=== PATIENT | male | born 1970 | race Caucasian/White ===

== ENCOUNTER 2019-06-07 10:04 | Outpatient (CLI) | payer OTHER, SELFPAY ==
--- NOTE | ~2019-06-07 | XR_ITS ---
XR thoracic spine 3V 06/07/2019 10:26 Indication: Back pain Procedure: 3 views thoracic spine Comparison: No prior studies for comparison. Findings: No acute fracture or traumatic malalignment. No paraspinal soft tissue abnormality. No radi opaque foreign bodies. Surrounding osseous structures within normal limits. Pedicles intact. Impression: 1: No significant abnormality of the thoracic spine. Reviewed, dictated and finalized at location A. Impression: 1: No significant abnormality of the thoracic spine.
[2019-06-07 10:48] LABS: Alanine Aminotransferase 53 U/L (4-50); Albumin Level 4.3 g/dL (3.5-5.1); Alkaline Phosphatase 117 U/L (38-126); Aspartate Amino Transferase 33 U/L (17-59); Bilirubin,Total 0.8 mg/dL (0.2-1.3); Blood Urea Nitrogen 19 mg/dL (9-20); Calcium 10.7 mg/dL (8.4-10.2); Carbon Dioxide 29 mmol/L (22-30); Chloride 104 mmol/L (98-107); Cholesterol 154 mg/dL (0-200); Estimated Glomerular Filt Rate > 60; Glucose 111 mg/dL (75-110); HDL Direct 22 mg/dL; Potassium 4.3 mmol/L (3.4-5.0); Sodium 138 mmol/L (137-145); Triglycerides 195 mg/dL (<150)
[2019-06-07 10:59] LABS: LDL Cholesterol Direct 99 mg/dL
[2019-06-07 11:18] LABS: Thyroid Stimulating Hormone 0.977 uIU/mL (0.465-4.680)
== END 2019-06-07 10:05 | disposition home or self-care (01) ==
PROVIDERS: Visit Provider Nurse Practitioner
DX: E78.2 Mixed hyperlipidemia (principal); F32.9 Major depressive disorder, single episode, unspecified; M54.9 Dorsalgia, unspecified
CPT/HCPCS: 36415; 72072; 80053; 80061; 84443

== ENCOUNTER 2019-12-27 11:11 | Emergency (ER) | payer OTHER, SELFPAY ==
[2019-12-27 11:22] VITALS: BP 140/98; PULSE 82; RESP 16; TEMP 36.8; O2SAT 99
--- NOTE | 2019-12-27 11:22 | ED.URI ---
HPI - URI/Sore Throat General Chief Complaint: Upper Respiratory Infection Stated Complaint: sore throat Time Seen by Provider: 12/27/19 11:34 Source: patient and RN notes reviewed Mode of arrival: ambulatory Limitations: no limitations History of Present Illness HPI Narrative: 49-year-old male presents concern for sore throat for approximately 1 week. Reports he had Covid in September, the symptoms fully resolved. He reports sore throat has been worsening. He denies rhinorrhea, nasal congestion, cough, shortness of breath, headache, nausea, fever. MD elicited complaint: sore throat Related Data Home Medications Medication Instructions Recorded Confirmed atorvastatin 20 mg PO DAILY 12/27/19 12/27/19 citalopram 40 mg PO DAILY 12/27/19 12/27/19 diclofenac sodium 75 mg PO DAILY 12/27/19 12/27/19 pantoprazole 40 mg PO DAILY 12/27/19 12/27/19 Allergies Allergy/AdvReac Type Severity Reaction Status Date / Time No Known Allergies Allergy Verified 10/31/19 13:37 Review of Systems Review of Systems: Narrative: CONSTITUTIONAL: Denies malaise, chills, sweats, or fever. EYES: Denies visual changes, redness, or discharge. ENT: Denies rhinorrhea, congestion, sinus pain, otalgia. Reports sore throat. CARDIOVASCULAR: Denies chest pain, palpitations, or edema. RESPIRATORY: Denies cough or dyspnea. GASTROINTESTINAL: Denies abdominal pain, nausea, vomiting, diarrhea SKIN: Denies rash or itching. MUSCULOSKELETAL: Denies myalgia. NEUROLOGIC: Denies headache. All systems reviewed & are unremarkable except as noted in HPI and below PMFSH Past Medical History Medical History (Updated 12/27/19 @ 11:42 by Jessenia Ruiz NP) Screening for colon cancer Social History Social History Smoking status: Never smoker Alcohol intake: never Comments At time of signature, agree with nursing past medical, surgical, social and family history. There is no relevant family history pertinent to the presenting complaint Exam Narrative: Exam Narrative: GENERAL: Well-appearing, well-nourished, and in no acute distress. HEAD: Normocephalic EYES: PERRLA, conjunctivae clear ENT: Nares clear, turbinates pink, no discharge. Mucous membranes moist. TM pearly brennan with sharp light reflex bilaterally; no tragal tenderness. Oropharynx erythematous without lesions. Tonsils enlarged and without exudate, no drooling, no hoarseness, no trismus, uvula midline. NECK: Supple. No lymphadenopathy CHEST: Clear to auscultation, breath sounds equal. No wheezing, rhonchi, rales, or stridor. No respiratory distress, speaks in full sentences. HEART: Regular rate and rhythm. No murmur heard. SKIN: Warm, dry, no rash. NEURO: Alert and oriented x3. PSYCH: Normal mood and affect Course Course Emergency Course: Patient is aware of diagnosis, understands and agrees to treatment plan. Anticipatory guidance given. Patient agrees to follow-up as directed and is aware of reasons to seek care at the emergency department. Portions of this record may have been created with voice recognition software Vital Signs Vital signs: Vital Signs Temperature 98.3 F 12/27/19 11:22 Pulse Rate 82 12/27/19 11:22 Respiratory Rate 16 12/27/19 11:22 Blood Pressure 140/98 H 12/27/19 11:22 Pulse Oximetry 99 12/27/19 11:22 Temperature 98.3 F 12/27/19 11:22 Pulse Rate 82 12/27/19 11:22 Respiratory Rate 16 12/27/19 11:22 Blood Pressure 140/98 H 12/27/19 11:22 Pulse Oximetry 99 12/27/19 11:22 Reviewed. MDM - URI/Sore Throat MDM Narrative Medical decision making narrative: Differential diagnosis considered: Baig virus, strep pharyngitis, allergic rhinitis, upper respiratory tract infection, sinusitis, rhinosinusitis, nasopharyngitis. viral pharyngitis, otitis media, otitis externa, pneumonia, bronchitis, viral cough syndrome, viral syndrome, and influenza. Exam findings show no acute concerns or changes; yasmany
== END 2019-12-27 11:44 | disposition home or self-care (01) ==
PROVIDERS: Emergency Provider Nurse Practitioner; PCP Internal Medicine
DX: J02.0 Streptococcal pharyngitis (principal); Z86.19 Personal history of other infectious and parasitic diseases; I10 Essential (primary) hypertension; J45.909 Unspecified asthma, uncomplicated; K21.9 Gastro-esophageal reflux disease without esophagitis; F41.9 Anxiety disorder, unspecified; F32.9 Major depressive disorder, single episode, unspecified
CPT/HCPCS: 87880; 99213; G0463

== ENCOUNTER 2020-02-21 11:48 | Emergency (ER) | payer BC, SELFPAY ==
[2020-02-21 12:10] VITALS: BP 161/99; PULSE 79; RESP 16; TEMP 36.4; O2SAT 99
--- NOTE | 2020-02-21 12:10 | ED.GENADULT ---
HPI - General Adult General Chief complaint: Extremity Injury, Upper Stated complaint: right arm pain Time Seen by Provider: 02/21/20 12:10 Source: patient and RN notes reviewed Mode of arrival: ambulatory Limitations: no limitations History of Present Illness HPI narrative: 50 yo male presents to the [facility] with C/O right upper arm pain since Sunday, 5 days. States that he had a tDap shot on Sat. Had increased stress due to brothers Sunday. Woke up Sunday with pain in the deltoid. Bruising noted to the site of vaccine. Pain is intermittent. Cannot reduce pain improvement. Cannot reduce pain with palpation of the C-spine, trapezius, or deltoid. Denies chest pain or shortness of breath. Has seen a chiropractor and was told he had a pinched nerve in his C-spine. Related Data Home Medications Medication Instructions Recorded Confirmed atorvastatin 20 mg PO DAILY 12/27/19 02/21/20 citalopram 40 mg PO DAILY 12/27/19 02/21/20 diclofenac sodium 75 mg PO DAILY 12/27/19 02/21/20 pantoprazole 40 mg PO DAILY 12/27/19 02/21/20 Allergies Allergy/AdvReac Type Severity Reaction Status Date / Time No Known Allergies Allergy Verified 02/21/20 12:15 Review of Systems Review of Systems: Narrative: CONSTITUTIONAL: Denies fever, chills, or sweats. EYES: Denies visual changes, redness, or discharge. ENT: Denies rhinorrhea, congestion, sore throat, or otalgia. CARDIOVASCULAR: Denies chest pain, palpitations, or edema. RESPIRATORY: Denies cough or dyspnea. GASTROINTESTINAL: Denies abdominal pain, nausea, vomiting, or diarrhea. GENITOURINARY: Denies dysuria or hematuria. SKIN: Denies rash or itching. MUSCULOSKELETAL:Right arm pain, deltoid muscle and triceps muscle. NEUROLOGIC: Denies headache, numbness, or weakness. PSYCHIATRIC: Denies anxiety or depression. All other systems reviewed are negative, except as documented in HPI. [facility] Past Medical History Medical History (Updated 02/21/20 @ 12:26 by Jessenia Duran) Screening for colon cancer Social History Social History Smoking status: Never smoker Alcohol intake: never Comments At the time of my signature, I reviewed and agree with the nursing past medical, surgical, social, and family history. There is no relevant family history pertinent to the patient complaint. Exam Narrative: Exam Narrative: GENERAL: This is a well-nourished, well-developed patient, in no apparent distress. HEAD: normocephalic, atraumatic. EYES: PERRL. Sclera clear/white. Vision is grossly intact. EARS: External ears normal, NECK: Neck supple, non-tender without lymphadenopathy, masses or thyromegaly. No midline tenderness. CARDIOVASCULAR: Regular rate and rhythm without murmurs, gallops, or rubs. RESPIRATORY: Clear to auscultation. Breath sounds equal bilaterally. No wheezes, rales, or rhonchi. GASTROINTESTINAL: Abdomen soft, non-tender, nondistended. Bowel sounds are active. No hepato-splenomegaly, or palpable masses. No guarding. SKIN: warm, intact with no suspicious lesions or rash, good texture and turgor. NEURO: awake, alert, and oriented to person, place and time. There were no obvious focal neurologic abnormalities. EXTREMITIES: No clubbing, cyanosis, or edema. No calf tenderness. Negative Homans sign bilaterally. BACK: Nontender without deformity or crepitance. No flank tenderness. Const: General: no acute distress Orientation/consciousness: patient oriented x3 Extrem: Left upper extremity: full ROM and normal capillary refill; no cyanosis Shoulder/upper arm images: 1. Bruise, patient states that is where he received his Tdap. Swelling noted compared to left side. 2. reports intermittent pain, unable to reproduce on exam. Course Vital Signs Vital signs: Vital Signs Temperature 97.6 F 02/21/20 12:10 Pulse Rate 79 02/21/20 12:10 Respiratory Rate 16 02/21/20 12:10 Blood Pressure 161/99 H
[2020-02-21 12:15] VITALS: BP 161/99; PULSE 79; RESP 16; TEMP 36.4; O2SAT 99
[2020-02-21 12:30] VITALS: BP 140/90
== END 2020-02-21 12:30 | disposition home or self-care (01) ==
PROVIDERS: Emergency Provider Nurse Practitioner; PCP Internal Medicine
DX: S40.021A Contusion of right upper arm, initial encounter (principal); X58.XXXA Exposure to other specified factors, initial encounter; S46.911A Strain of unspecified muscle, fascia and tendon at shoulder and upper arm level, right arm, initial encounter; I10 Essential (primary) hypertension; J45.909 Unspecified asthma, uncomplicated; K21.9 Gastro-esophageal reflux disease without esophagitis; F41.9 Anxiety disorder, unspecified; F32.9 Major depressive disorder, single episode, unspecified
CPT/HCPCS: 99213; G0463

== ENCOUNTER → 2020-02-25 11:37 | Outpatient (CLI) | payer BC, SELFPAY ==
--- NOTE | ~2020-02-25 | XR_ITS ---
EXAMINATION: XR_[id number]_CR DATE: 02/25/2020 11:54 INDICATION: Neck pain. TECHNIQUE: 4 views of cervical spine were obtained. COMPARISON: None. FINDINGS: There is kyphosis of cervical spine. Vertebral body heights are normal. There is mildly dec reased disc height at C4-C5 and moderately decreased disc height at C5-C6 and C6-C7. There is multile melvin mild facet joint osteoarthritis. There is multilevel uncovertebral joint osteoarthritis, severe o n the right at C5-C6 and bilaterally at C6-C7. There is mild central canal stenosis at C4-C5, C5-C6, and C6-C7. No prevertebral soft tissue swelling. IMPRESSION: 1. Moderate cervical spondylosis. Reviewed, dictated and finalized at location B. AL RESIDENT
== END ==
PROVIDERS: PCP Internal Medicine; Visit Provider Chiropractor
DX: M54.2 Cervicalgia (principal); M47.812 Spondylosis without myelopathy or radiculopathy, cervical region
CPT/HCPCS: 72040

== ENCOUNTER 2020-05-16 10:32 | Outpatient (CLI) | payer BC, SELFPAY ==
--- NOTE | ~2020-05-16 | MR_ITS ---
EXAMINATION: MR cervical spine wo con EXAM DATE: 05/16/2020 11:22 INDICATION: Radiculopathy, right arm pain and tingling. Neck pain. TECHNIQUE: Multi-sequential, multiplanar MR images of the cervical spine were obtained without contra st. Axial T2, axial T2 MERGE sequence. Sagittal T1, T2, T2 fat saturation images also obtained. Th ere is no prior study for comparison. FINDINGS: There is moderate disc disease C5-6 and 6-7, mild at C4-5. The vertebral bodies are aligne d in the AP dimension. There are no suspicious marrow signal abnormalities. The spinal cord signal in tensity and intrinsic morphology is normal. Cervicomedullary junction is normal in appearance. Level by level evaluation: C2-C3: Disc does not extend beyond the endplate margin. Uncovertebral joint arthropathy: None. Facet joint arthropathy: Mild bilateral. Neural foraminal stenosis: No stenosis. Central canal stenosis: No stenosis. C3-C4: There is a minimal diffuse disc bulge. Uncovertebral joint arthropathy: Mild to moderate right, mild left. Facet joint arthropathy: Mild to moderate bilateral. Neural foraminal stenosis: Mild to moderate right, mild left. Central canal stenosis: No stenosis. C4-C5: There is a minimal diffuse disc bulge. Uncovertebral joint arthropathy: Mild to moderate right, mild left. Facet joint arthropathy: Mild to moderate right, mild left. Neural foraminal stenosis: Minimal bilateral. Central canal stenosis: No stenosis. C5-C6: There is a mild to moderate diffuse disc bulge asymmetric to the right extending into the neur al foramina Uncovertebral joint arthropathy: Moderate right, mild left. Facet joint arthropathy: Mild to moderate bilateral. Neural foraminal stenosis: Severe right, mild left. Central canal stenosis: Mild. C6-C7: There is a mild diffuse disc bulge. Uncovertebral joint arthropathy: Moderate right, mild to moderate left. Facet joint arthropathy: Mild bilateral . Neural foraminal stenosis: Moderate to severe right, moderate left. Central canal stenosis: No stenosis. C7-T1: Disc does not extend beyond the endplate margin. Uncovertebral joint arthropathy: Mild bilateral. Facet joint arthropathy: Mild bilateral. Neural foraminal stenosis: No stenosis. Central canal stenosis: No stenosis. IMPRESSION: 1. Significant right neural foraminal stenosis C5-6 and C6-7. 2. Lesser spondylosis above. Reviewed, dictated and finalized at location A.
== END 2020-05-16 10:33 | disposition home or self-care (01) ==
PROVIDERS: PCP Internal Medicine; Visit Provider Internal Medicine
DX: M54.12 Radiculopathy, cervical region (principal)
CPT/HCPCS: 72141

== ENCOUNTER 2020-08-11 17:15 | Outpatient (RCR) | payer BC, SELFPAY ==
--- NOTE | 2020-07-07 15:15 | PTOPEVAL ---
PHYSICAL THERAPY EVALUATION AND PLAN OF CARE Thank you for referring Fer Euceda to [facility].? The patient is scheduled to be seen for therapy? 1x/week for 4 weeks. Please review, sign, date and return this plan of care JUAN CARLOS. I agree with and certify that the following plan of care is medically necessary. Referring Physician Date Attending Provider: Krzysztof Liu Evaluation Outpatient Past Medical History Neurological History Hx Migraine Yes: occassional Hx Other Neurological Disorders Yes: chronic headaches, may be sinus related, unsure Cardiovascular History Hx Hypertension Yes Respiratory History Hx Asthma Yes Gastrointestinal History Hx Gastroesophageal Reflux Disease Yes Hx Hemorrhoids Yes Hx Other Gastrointestinal Disorders Yes: lap bella Endocrine History Hx Thyroidectomy Yes: partial parathyroidectomy Psychosocial History Hx Anxiety Yes Hx Depression Yes Diagnosis cervical pain with radiculopathy Onset chronic Subjective Information States that he was Query Text:As Reported By Patient/ experiencing some Family intermittment neck pain initially, but then in February he experienced some stress which seemed to increase the pain and it started to go down the right arm. He was experiencing some tinglin gin the irght arm. He saw a chiropractor which seemed to help some. He slowed that down and it pain started to come back. He has had an x-ray and MRI indicating spinal stenosis and herniated discs. 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 The doctors had talked about doing surgery, but have decided that since his pain is reduced and strength is good, they are going to hold off on surgery and do therapy. Self Report Pain Assessment Right Spine, Cervical Reported Pain Level 2 Pain Description Aching,Tightness,Tingling Pain Radiation Right Arm Pain Frequency Chronic,Continuous Lowest Pain I
--- NOTE | 2020-07-21 14:26 | PCPTNOTE ---
Patient called & cancelled scheduled appointment this date due to being stuck in traffic.
--- NOTE | 2020-08-11 17:52 | PTOPEVAL ---
PHYSICAL THERAPY DISCHARGE NOTE Thank you for referring Fer Euceda to [facility].? Please review, sign, date and return this plan of care JUAN CARLOS. I agree with and certify that the following plan of care is medically necessary. Referring Physician Date Attending Provider: Krzysztof Liu Discharge Diagnosis cervical pain with radiculopathy Onset chronic Subjective Information States that neck pain Query Text:As Reported By Patient/ continues to be at bay but the Family arm tingling is almost worse than when he started. States that he stirred it up. Cervical and Lumbar ROM Cervical ROM Cervical Flexion (0-60) 50 Query Text:Active in Degrees Cervical Extension (0-70) 45 Query Text:Active in Degrees Cervical Rotation Right (0-90) 80 Query Text:Active in Degrees Cervical Rotation Left (0-90) 80 Query Text:Active in Degrees Upper Extremity Muscle Strength Testing Scapular/Shoulder Left Shoulder Flexion Strength 5 Normal Shoulder Extension Strength 5 Normal Shoulder Abduction Strength 5 Normal Shoulder Medial Rotation Strength 5 Normal Shoulder Lateral Rotation Strength 5 Normal Right Shoulder Flexion Strength 5 Normal Shoulder Extension Strength 5 Normal Shoulder Abduction Strength 5 Normal Shoulder Medial Rotation Strength 5 Normal Shoulder Lateral Rotation Strength 5 Normal Posture Posture Sitting Position Head/C-Spine Posture Neutral Position Thoracic Spine Posture Neutral Lumbar Spine Posture Neutral Shoulder Posture (L) Rounded,(R) Rounded,(L) Forward,(R) Forward Palpation Assessment Palpation Palpation MODERATE hypomobility of cervical spine laterally and to thoracic spine and ribs posterior-anterior; muscles more tight on right than left General Exercise General Exercises Side Bilateral Exercise Description -Seated 3 finger rotation x10 Query Text:Record Sets, Reps, -Supine foam roll H-abd/pec Resistance, and Position stretch, & serratus punches, x12, alternating shoulder flexion, angels, cervical retraction -horizontal foam roll thoracic extension mobilization -cervical retraction standing against wall -prone lower trapezius activat
== END 2020-08-19 16:51 | disposition home or self-care (01) ==
LOC: ANHPT 17:15
PROVIDERS: PCP Internal Medicine
DX: M50.10 Cervical disc disorder with radiculopathy, unspecified cervical region (principal)
CPT/HCPCS: 97110; 97140; 97162

== ENCOUNTER 2021-02-03 08:00 | Outpatient (RCR) | payer BC, SELFPAY ==
--- NOTE | 2021-01-05 15:24 | PTOPEVAL ---
PHYSICAL THERAPY EVALUATION AND PLAN OF CARE Thank you for referring Fer Euceda to [facility].? The patient is scheduled to be seen for therapy? 2x/week for4-6 weeks. Please review, sign, date and return this plan of care JUAN CARLOS. I agree with and certify that the following plan of care is medically necessary. Referring Physician Date Evaluation Outpatient Past Medical History Neurological History Hx Migraine Yes: occassional Hx Other Neurological Disorders Yes: chronic headaches, may be sinus related, unsure Cardiovascular History Hx Hypertension Yes Respiratory History Hx Asthma Yes Gastrointestinal History Hx Gastroesophageal Reflux Disease Yes Hx Hemorrhoids Yes Hx Other Gastrointestinal Disorders Yes: lap bella Endocrine History Hx Thyroidectomy Yes: partial parathyroidectomy Psychosocial History Hx Anxiety Yes Hx Depression Yes Evaluation Information Problem Diagnosis spinal fusion and discectomy Onset 11/01/2020 Subjective Information Fusion and C4-7 and Query Text:As Reported By Patient/ discectomies. The numbness in Family the right UE was eliminated after the surgery. States that there is no numbness but he states that he gets stiffness in his neck. States that he feels like he gets a fatigue in his neck and he will lay down and rest his head in neutral and it feels a lot better. Pain Assessment Timing of Pain Assessment Timing of Pain Assessment Assessment Self Report Self Report Pain Level 0 Pain Score Pain Score 0: Self Report Upper Extremity Range of Motion General Upper Extremity Range of Motion Reason Not Measured WFL/Left,WFL/Right Gross Upper Extremity Range of Motion able to reach far enough Comments behind back to tuck in shirt and pull up pants; reaching behind back is mildly restricted compared to normal Upper Extremity Muscle Strength Testing Scapular/Shoulder Bilateral Shoulder Flexion Strength 4+ Good + Shoulder Abduction Strength 4+ Good + Shoulder Medial Rotation Strength 5 Normal Shoulder Lateral Rotation Strength 4 Good Posture Posture Sitting Position Shoulder Posture (L) Forward,(R) Forward,(L) Elevated,(R) Elevated Palpation Assessment Palpation Palpation severe hypomobility of th
--- NOTE | 2021-02-03 09:10 | PTOPEVAL ---
PHYSICAL THERAPY DISCHARGE NOTE Thank you for referring Fer Euceda to [facility].? Please review, sign, date and return this plan of care JUAN CARLOS. I agree with and certify that the following plan of care is medically necessary. Referring Physician Date Discharge Diagnosis spinal fusion and discectomy Onset 11/01/2020 Subjective Information States that the pain in his Query Text:As Reported By Patient/ neck is less than when he Family started a month ago. reports that when he turns to the left he feels a twinge in the left side. States that he is going to go back to work in two weeks. Upper Extremity Range of Motion General Upper Extremity Range of Motion Reason Not Measured WNL/Left,WNL/Right Upper Extremity Muscle Strength Testing Scapular/Shoulder Bilateral Scapular Retraction - Middle Trapezius 4 Good Scapular Retraction - Lower Trapezius 4 Good Shoulder Flexion Strength 5 Normal Shoulder Abduction Strength 5 Normal Shoulder Medial Rotation Strength 5 Normal Shoulder Lateral Rotation Strength 5 Normal Posture Posture Sitting Position Shoulder Posture (L) Forward,(R) Forward Palpation Assessment Palpation Palpation moderate hypomobility of thoracic spine and ribs in posterior to anterior direction General Exercise General Exercises Side Bilateral Exercise Location shoulders Exercise Type Active,Stretching Exercise Description reviewed HEP and discussed Query Text:Record Sets, Reps, important exercises to Resistance, and Position continue as he returns into work Exercise Comments added cervical rotation & upper trap stretch to HEP PT Clinical Summary Fer is ~8 wks s/p C4-7 spinal fusion. Fer has met his functional goals as of today. He feels confident in his HEP and he has a plan to return to work. We will d/c therapy at this time. PT Services Indicated No Rehabilitation Potential Good Patient/Caregiver's Personal Goals for to recover well Rehabilitation Potential Barriers to Goal Achievements Questionable Compliance Support Requirements For Optimal None Arnold Patient/Caregiver Informed of Benefits/ Yes Risks of Rehabilitation Patient/Caregiver Participated in Plan
== END 2021-02-07 13:35 | disposition home or self-care (01) ==
LOC: ANHPT 08:00
PROVIDERS: PCP Internal Medicine
DX: Z47.89 Encounter for other orthopedic aftercare (principal); Z98.1 Arthrodesis status
CPT/HCPCS: 97110; 97140; 97162

== ENCOUNTER 2021-06-14 19:09 | Emergency (ER) | payer BC, SELFPAY ==
[2021-06-14 19:25] VITALS: BP 127/81; PULSE 80; RESP 16; TEMP 36.4; O2SAT 98
--- NOTE | 2021-06-14 19:37 | ED.SKABFB ---
HPI - Skin/Abscess/Foreign Bdy General Chief complaint: Skin/Abscess/Foreign Body Stated complaint: Rash on leg Time Seen by Provider: 06/14/21 19:37 Source: patient Mode of arrival: ambulatory Limitations: no limitations History of Present Illness HPI narrative: 51-year-old male presents with redness, swelling, pain to medial aspect right thigh that started yesterday. Afebrile. Did do yard work over the weekend but unsure if he was bit by any insects. Denies itching. Ambulatory with steady gait. All systems reviewed and negative except as noted above. Related Data Allergies Allergy/AdvReac Type Severity Reaction Status Date / Time No Known Allergies Allergy Verified 06/14/21 19:16 Review of Systems Review of Systems: CONSTITUTIONAL: Denies fever, chills, or sweats. EYES: Denies visual changes, redness, or discharge. ENT: Denies rhinorrhea, congestion, sore throat, or otalgia. CARDIOVASCULAR: Denies chest pain, palpitations, or edema. RESPIRATORY: Denies cough or dyspnea. GASTROINTESTINAL: Denies abdominal pain, nausea, vomiting, or diarrhea. GENITOURINARY: Denies dysuria or hematuria. SKIN: Denies rash or itching. Reports redness, swelling, warmth to right thigh. MUSCULOSKELETAL: Denies back pain, joint pain, or myalgia. NEUROLOGIC: Denies headache, numbness, or weakness. PSYCHIATRIC: Denies anxiety or depression. All other systems reviewed are negative, except as documented in HPI. [facility], [facility] Past Medical History Medical History Depression Essential (primary) hypertension History of COVID-19 History of kidney stones Mixed hyperlipidemia Primary hyperparathyroidism Screening for colon cancer Surgical History Surgical History H/O hemorrhoidectomy History of neck surgery Status post laser lithotripsy of ureteral calculus Status post parathyroidectomy Family History Family History Father , age 59 Esophageal cancer Mother Heart disease Diabetes mellitus Hypertension CKD (chronic kidney disease) Skin cancer Sibling Hypertension Social History Social History Smoking status: Never smoker Second hand tobacco smoke exposure: No Alcohol intake: never Substance use: never Substance use type: does not use 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 There is no relevant family history pertinent to the presenting complaint. Exam Narrative: GENERAL: This is a well-nourished, well-developed patient, in no apparent distress. HEAD: normocephalic, atraumatic. EYES: PERRL. Sclera clear/white. Vision is grossly intact. EARS: External ears normal NOSE: External nose normal NECK: Neck supple, non-tender without lymphadenopathy, masses or thyromegaly. CARDIOVASCULAR: Regular rate and rhythm without murmurs, gallops, or rubs. RESPIRATORY: Clear to auscultation. Breath sounds equal bilaterally. No wheezes, rales, or rhonchi. GASTROINTESTINAL: Abdomen soft, non-tender, nondistended. Bowel sounds are active. No hepato-splenomegaly, or palpable masses. No guarding. SKIN: warm, Dry, intact with no suspicious lesions or rash, good texture and turgor. There is an area of induration to the medial aspect of right thigh that is approximately 5 cm diameter. Total area of erythema is 20 cm x in centimeters. Warm to touch. Skin is intact no drainage. No fluctuance. NEURO: awake, alert, and oriented to person, place and time. There were no obvious focal neurologic abnormalities. EXTREMITIES: Normal range of motion to all extremities. Course Course Level of Care: Express Care Visit Vital Signs Vital signs: Vital Signs Temperature 36.4 C 06/14/21 19:25 Pulse Rat
== END 2021-06-14 19:52 | disposition home or self-care (01) ==
PROVIDERS: Emergency Provider Nurse Practitioner Family; PCP Internal Medicine
DX: L03.115 Cellulitis of right lower limb (principal); I10 Essential (primary) hypertension; E78.2 Mixed hyperlipidemia; E21.0 Primary hyperparathyroidism; Z86.16 Personal history of COVID-19; Z90.89 Acquired absence of other organs
CPT/HCPCS: 99213; G0463

== ENCOUNTER 2021-11-05 08:50 | Outpatient (CLI) | payer BC, SELFPAY ==
[2021-11-05 09:16] LABS: Anion Gap 10 mmol/L (8-16); Blood Urea Nitrogen 20 mg/dL (9-20); Calcium 8.8 mg/dL (8.4-10.2); Carbon Dioxide 28 mmol/L (22-30); Chloride 102 mmol/L (98-107); Estimated Glomerular Filt Rate > 60; Glucose 111 mg/dL (65-110); Potassium 3.7 mmol/L (3.4-5.0); Sodium 140 mmol/L (137-145)
== END 2021-11-05 08:51 | disposition home or self-care (01) ==
LOC: ANHLAB 08:52
PROVIDERS: PCP Internal Medicine; Visit Provider Anesthesiology
DX: Z01.812 Encounter for preprocedural laboratory examination (principal); R73.03 Prediabetes
CPT/HCPCS: 36415; 80048

== ENCOUNTER 2021-11-14 00:08 | Day surgery (SDC) | payer BC, SELFPAY ==
[2021-11-03 15:37] VITALS: BMI 29.0
--- NOTE | 2021-11-03 15:38 | SUR.PREOP ---
Report to the Outpatient Waiting Room, entrance under the green pavilion located off [facility], at time 1000 on date _11/14/21 . OR Time: _1200 . Time changes happen often and if your time is changed the preop area will call you the afternoon before. - You and your visitor will be asked to self-screen and do not enter if you have any COVID symptoms. - Only one visitor and NO children visitors are allowed at this time. - The patient visitor is requested to leave or wait in car when not with patient due to restrictions. - A mask is required within the hospital. Patients may have clear liquids (water, carbonated beverages, clear teas, apple juice) until 3 hours prior to surgery with a maximum of 20 ounces. - No food from midnight until time of surgery - Infants may have breast milk until 4 hours before surgery, infant formula 6 hours prior to surgery. - Children will be allowed to drink immediately following surgery. If applicable, please bring a bottle or sippy cup to assist with drinking. Juice, water, soda, and popsicles are readily available. For infants on formula, please bring formula the day of surgery. Pacifiers are allowed. Take the following medications with a SIP of water the morning of surgery: citalopram,metoprolol,lorazepam,omeprazole Medications to discontinue per physician __n/a Date to take last dose_n/a Please no make-up, nail italian, hairspray, perfume, deodorant, or body powder the day of surgery. No jewelry (including any body piercings) or valuables the day of surgery, leave them at home. Please take a shower or bath the night before, or the morning of, surgery with an antibacterial soap. Wear comfortable, loose fitting clothing. Children are encouraged to wear pajamas. - Jewelry must be removed prior to entering the operating room. Rings and piercings that are not removed may be cut off. - The hospital will not accept responsibility for valuables. - Please leave all valuables, including medications, at home the day of surgery. If you are going home after surgery, a licensed four horse hitch driver must drive you home. - NO public transportation without another adult. - We recommend that an adult stay with you for 24 hours following discharge. - We also recommend that you do not drive, make important decision, drink alcoholic beverages, or take any drugs that were not prescribed by your health care provider for at least 24 hours after your discharge time. For Pediatric surgeries, we recommend two adults accompany the child home (only one inside the building at this time). Follow any additional instructions given to you from your surgeon. If you or anyone in your household have experienced Covid symptoms in the past week, please notify your surgeon or the nurse liaison at the phone number below for possible testing. Telephone instructions given to beverly reynoso__and asked if any additional questions and then verbalized understanding. Patient advised to call surgeon office or pre surgery nurse liaison [phone] if any additional questions.
[2021-11-14] MEDS: ACETAMINOPHEN 500 MG TABLET 1000 MG PO (10:56)
[2021-11-14] MEDS: LACTATED RINGERS 1,000 ML 30 ML IV CONT (10:56)
[2021-11-14] MEDS: KETOROLAC 15 MG/ML VIAL (*BKC) IV PUSH (10:57)
[2021-11-14 11:02] LABS: Glucose Point of Care 95 mg/dl (65-105)
[2021-11-14 11:08] VITALS: BP 136/86; PULSE 73; RESP 18; TEMP 36.1; O2SAT 99
--- NOTE | 2021-11-14 11:26 | WPDANESEPPF ---
Anes - Initial Pre Proc Eval Procedure: Operation Date: 11/14/21 12:00 Proposed Procedures p Rectal Examination Under Anesthesia, Excision Anal Skin Tag - Manuel Kenny DO Date/Time: 11/14/21 11:26 Surgeon: Manuel Kenny DO Pre Op Diagnosis: Residual Hemorroid Skin Tag Patient Data Age: 51 Gender: M Height: 1.88 m Weight: 103.8 kg Last Vital Signs Temp 36.1 C L 11/14/21 11:08 Pulse 73 11/14/21 11:08 Resp 18 11/14/21 11:08 BP 136/86 11/14/21 11:08 Pulse Ox 99 11/14/21 11:08 O2 Del Method Room Air 11/14/21 11:08 Allergies Allergy/AdvReac Type Severity Reaction Status Date / Time No Known Allergies Allergy Verified 11/03/21 15:06 Home Medications Medication Instructions Recorded Confirmed Type hydrochlorothiazide 25 mg tablet 25 mg PO DAILY #90 tabs 08/03/21 11/14/21 Rx metformin 500 mg tablet 500 mg PO DAILY #90 tabs 08/15/21 11/14/21 Rx citalopram 40 mg tablet 40 mg PO DAILY #90 tabs 10/17/21 11/14/21 Rx diclofenac sodium 75 mg 75 mg PO BID #180 tabs 10/24/21 11/14/21 Rx tablet,delayed release atorvastatin 20 mg tablet 20 mg PO DAILY 11/03/21 11/14/21 History ibuprofen 800 mg tablet 800 mg PO PRN PRN pain 11/03/21 11/14/21 History lorazepam 0.5 mg tablet 0.5 mg PO DAILY PRN anxiety 11/03/21 11/14/21 History melatonin 5 mg chewable tablet 5 mg PO HS 11/03/21 11/14/21 History metoprolol tartrate 100 mg tablet 100 mg PO BID 11/03/21 11/14/21 History omeprazole 20 mg capsule,delayed 20 mg PO DAILY 11/03/21 11/14/21 History release Laboratory Tests 11/14/21 10:58 POC Capillary Glucose 95 mg/dl mg/dl (65-105) Patient hx anesthesia problems: other (slow to awaken) Family hx anesthesia problems: none Results Review: All pre-operative results and documents have been reviewed as part of the pre-operative evaluation. [facility] Past Medical History Medical History (Reviewed 11/14/21 @ 11: by Elvis Meier MD) Acute anxiety Depression Essential (primary) hypertension History of COVID-19 History of kidney stones Mixed hyperlipidemia OLI (obstructive sleep apnea) Prediabetes Primary hyperparathyroidism Screening for colon cancer Surgical History Surgical History (Reviewed 11/14/21 @ 11: by Elvis Meier MD) H/O hemorrhoidectomy History of neck surgery Status post laser lithotripsy of ureteral calculus Status post parathyroidectomy Family History Family History (Reviewed 11/14/21 @ 11: by Elvis Meier MD) Father , age 59 Esophageal cancer Mother Heart disease Diabetes mellitus Hypertension CKD (chronic kidney disease) Skin cancer Sibling Hypertension Social History Social History (Reviewed 11/14/21 @ : by Elvis Meier MD) Smoking status: Never smoker Second hand tobacco smoke exposure: No Alcohol intake: never Substance use: never Substance use type: does not use Living arrangements: with family 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 Informed Consent: The patient's anesthetic plan and its attendant risks and benefits were discussed with the patient/family/POA. Questions were solicited and answers provided to the satisfaction of the patient/family/POA.
--- NOTE | 2021-11-14 11:34 | WPDHPUPDATE1 ---
History and Physical Update Update Date/Time: 11/14/21 11:34 History and Physical has been reviewed, including an updated exam of the patient. There are NO changes in the patient's condition. Risks, benefits, and alternatives have been discussed and questions answered. Patient agrees to proceed with procedure.
--- NOTE | 2021-11-14 11:34 | PM.IMHP ---
H&P: HPI History of Present Illness Date/Time: 11/14/21 11:34 Chief Complaint: Anal skin tag Narrative: 51 yo man presents for excision of anal skin tag. He reports no changes since last seen in office. Review of Systems Review of Systems: All systems reviewed & are unremarkable except as noted in HPI and below Constitutional: Constitutional: Denies chills, Denies fever(s), Denies headache(s) and Denies weight loss Eyes: Eyes: Denies change in vision ENT: Denies dizziness, Denies headache(s), Denies neck mass and Denies throat swelling Cardiovascular: Cardiovascular: Denies chest pain, Denies lightheadedness and Denies dyspnea Respiratory: Respiratory: Denies cough, Denies dyspnea and Denies wheezing Gastrointestinal: Gastrointestinal: Denies abdominal pain, Denies change in bowel habits, Denies nausea and Denies vomiting Genitourinary: Genitourinary: Denies hematuria and Denies dysuria Musculoskeletal: Musculoskeletal: Reports as per HPI Integumentary/Breasts: Skin/Breast: Reports as per HPI Neurologic: Denies dizziness and Denies headache(s) Allergic/Immunologic: Allergic/Immunologic: Denies throat swelling and Denies wheezing PMFSH Past Medical History Medical History Acute anxiety Depression Essential (primary) hypertension History of COVID-19 History of kidney stones Mixed hyperlipidemia OLI (obstructive sleep apnea) Prediabetes Primary hyperparathyroidism Screening for colon cancer Surgical History Surgical History H/O hemorrhoidectomy History of neck surgery Status post laser lithotripsy of ureteral calculus Status post parathyroidectomy Family History Family History Father , age 59 Esophageal cancer Mother Heart disease Diabetes mellitus Hypertension CKD (chronic kidney disease) Skin cancer Sibling Hypertension Social History Social History Smoking status: Never smoker Second hand tobacco smoke exposure: No Alcohol intake: never Substance use: never Substance use type: does not use Living arrangements: with family 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 Spiritual care concerns: No Meds Home Medications and Allergies Home Medications Medication Instructions Recorded Confirmed Type hydrochlorothiazide 25 mg tablet 25 mg PO DAILY #90 tabs 08/03/21 11/14/21 Rx metformin 500 mg tablet 500 mg PO DAILY #90 tabs 08/15/21 11/14/21 Rx citalopram 40 mg tablet 40 mg PO DAILY #90 tabs 10/17/21 11/14/21 Rx diclofenac sodium 75 mg 75 mg PO BID #180 tabs 10/24/21 11/14/21 Rx tablet,delayed release atorvastatin 20 mg tablet 20 mg PO DAILY 11/03/21 11/14/21 History ibuprofen 800 mg tablet 800 mg PO PRN PRN pain 11/03/21 11/14/21 History lorazepam 0.5 mg tablet 0.5 mg PO DAILY PRN anxiety 11/03/21 11/14/21 History melatonin 5 mg chewable tablet 5 mg PO HS 11/03/21 11/14/21 History metoprolol tartrate 100 mg tablet 100 mg PO BID 11/03/21 11/14/21 History omeprazole 20 mg capsule,delayed 20 mg PO DAILY 11/03/21 11/14/21 History release Allergies Allergy/AdvReac Type Severity Reaction Status Date / Time No Known Allergies Allergy Verified 11/03/21 15:06 Vital Signs Vital Signs - 24 hr 11/14/21 11:08 Temperature 36.1 C L Pulse Rate 73 Respiratory Rate 18 Blood Pressure 136/86 Pulse Oximetry 99 Oxygen Delivery Room Air Exam Const: General: no acute distress and alert Orientation/consciousness: patient oriented x3 HENMT: Head: normocephalic and atraumatic Ears: hearing grossly normal bilaterally Face/Nose/Sinus: Normal nares present Mouth: Yes Normal oral and palatal mucosa present Eyes: Periorbital: periorbital findings normal Sclera: sclerae normal EOM: EOMs intact bilaterally Neck: Ne
[2021-11-14] MEDS: ceFAZolin 2 GM/D5W 50 ML 2 GM/50 ML BAG IVPB (12:00)
[2021-11-14 12:40] VITALS: BP 138/90; PULSE 78; RESP 16; O2SAT 97
[2021-11-14 12:47] LABS: Glucose Point of Care 104 mg/dl (65-105)
--- NOTE | 2021-11-14 12:47 | W.PM.PROC2 ---
Procedure Note - Detailed Date of Procedure 11/14/21 Pre-op Diagnosis Residual Hemorroid Skin Tag Post-op Diagnosis Same (Right anterior and left posterior anal skin tag) Procedure Performed Rectal exam under anesthesia with excision of anal skin tag x2 Surgeon Manuel Kenny, DO Anesthesia MAC and Local (2% lidocaine with epinephrine) Indications This is a 51-year-old man who presents with multiple anal skin tags that have been causing discomfort and causing hygiene issues for the past several months. He states that he has toe wipe excessively around the area to get clean after bowel movements and eventually does cause some bleeding when wiping. He denies any blood dripping into the toilet. He was found to have multiple anal skin tags on exam. Discussions were made with the patient about treatment options and decision was made to proceed with rectal exam under anesthesia with excision of anal skin tags. Findings Rectal exam under anesthesia was performed. The patient appeared to have the predominant anal skin tag in the left anterior region and also had a smaller skin tag in the right posterior region. Both skin tags were excised and sent to the lab for pathology. No internal anal abnormalities were noted and no rectal abnormalities were noted. Description of Procedure Procedure as well as risks, benefits, and alternatives were discussed with the patient. Written consent was obtained and placed in chart prior to procedure. Patient was brought back to surgical suite. He was placed supine on operating table. Time-out was done to confirm patient and procedure. IV sedation was then administered by the anesthesia department. He was then placed in dorsal lithotomy position and his perirectal region was prepped and draped in sterile fashion using Betadine prep. Digital rectal exam was initially performed. A Hill-Leos anoscope was then inserted and the anal rectal canal was carefully inspected. 2% lidocaine with epinephrine was then infiltrated around the anal skin tags. The left anterior anal skin tag was excised using curved scissors. The wound bed was then inspected and hemostasis was achieved with electrocautery. The skin edges were then reapproximated using 3-0 chromic simple interrupted sutures. The right posterior anal skin tag was then identified and this was also excised using scissors. Hemostasis was achieved with electrocautery. The skin edges were then reapproximated using 3-0 chromic simple interrupted sutures. The area was then irrigated with sterile saline. No other abnormalities were noted in hemostasis appeared adequate. A piece of Xeroform gauze was then placed at the anal opening followed by fluff gauze and mesh underwear. The patient was then awakened from anesthesia and transferred to recovery. Estimated Blood Loss 10 Pathology Yes (Anal skin tag x2) Complications No immediate complications Condition Stable Disposition Same day [facility] Billing Surgery - Charge Forward: Surgery Billing
[2021-11-14 13:10] VITALS: BP 133/95; PULSE 69; RESP 16
== END 2021-11-14 13:39 | disposition home or self-care (01) ==
PROVIDERS: PCP Internal Medicine; Visit Provider Surgery
PROC: (CPT 46230; principal; 2021-11-14 12:00)
DX: K64.4 Residual hemorrhoidal skin tags (principal); R73.03 Prediabetes; Z79.84 Long term (current) use of oral hypoglycemic drugs; I10 Essential (primary) hypertension; E78.2 Mixed hyperlipidemia; G47.33 Obstructive sleep apnea (adult) (pediatric); F41.9 Anxiety disorder, unspecified; F32.A Depression, unspecified
CPT/HCPCS: 46230; 82948; 88304; A9270; J0690; J1885; J2250; J2704; J3010; J7120

== ENCOUNTER 2022-09-10 17:59 | Emergency (ER) | payer BC, SELFPAY ==
[2022-09-10 18:22] VITALS: BP 152/95; PULSE 68; RESP 16; TEMP 36.6; O2SAT 98
--- NOTE | 2022-09-10 18:53 | ED.URI ---
HPI - URI/Sore Throat General Chief Complaint: Upper Respiratory Infection Stated Complaint: Sore Throat Time Seen by Provider: 09/10/22 18:50 Source: patient, RN notes reviewed and old records reviewed Mode of arrival: ambulatory Limitations: no limitations History of Present Illness HPI Narrative: 52 year old male presents to [facility] care with complaints of sore throat and cough since Sunday with increased symptoms today. Patient reports that he has been on vacation and he is suppose to return to work tomorrow and wants to make sure not infectious and also has elderly mother. Patient reports that he has history of asthma and has had had past pneumonia. Patient reports that cough is frequent and is harsh at times, denies any known fevers chills or sweats. Patient reports that he has been taking NyQuil at bedtime but is not helping. MD elicited complaint: cough and sore throat Pertinent past history: pneumonia and asthma Onset (ago): day(s) (2) Consistency: progressively worsening Severity: moderate Pain scale (0-10): 5 Able to tolerate fluids by mouth: Yes Exacerbating factors: exertion Treatments prior to arrival: cold medicine Related Data Home Medications Medication Instructions Recorded Confirmed melatonin 5 mg chewable tablet 5 mg PO HS 11/03/21 09/10/22 Allergies Allergy/AdvReac Type Severity Reaction Status Date / Time No Known Allergies Allergy Verified 09/10/22 18:15 Review of Systems Review of Systems: CONSTITUTIONAL: Denies malaise, chills, sweats, or fever. EYES: Denies visual changes, redness, or discharge. ENT: Reports rhinorrhea, congestion, sinus pain, otalgia positive for sore throat. CARDIOVASCULAR: Denies chest pain, palpitations, or edema. RESPIRATORY: Reports cough productive at times ? Denies dyspnea. GASTROINTESTINAL: Denies abdominal pain, nausea, vomiting, diarrhea SKIN: Denies rash or itching. MUSCULOSKELETAL: Denies myalgia. NEUROLOGIC: reports some headache pain All systems reviewed & are unremarkable except as noted in HPI and below PMFSH Past Medical History Medical History Acute anxiety COVID-19 Depression Essential (primary) hypertension History of COVID-19 History of kidney stones Mixed hyperlipidemia OLI (obstructive sleep apnea) Prediabetes Primary hyperparathyroidism Screening for colon cancer Surgical History Surgical History H/O hemorrhoidectomy History of neck surgery Hx of hemorrhoidectomy REUA, excision of Anal Skin tag on 11/14/21 Status post laser lithotripsy of ureteral calculus Status post parathyroidectomy Family History Family History Father , age 59 Esophageal cancer Mother Heart disease Diabetes mellitus Hypertension CKD (chronic kidney disease) Skin cancer Sibling Hypertension Social History Social History Smoking status: Never smoker Second hand tobacco smoke exposure: No Alcohol intake: former Substance use: never Substance use type: does not use Lack of Transportation: No Lack of Food: Never True Current Housing: I Have Housing Concerned About Future Housing: No Difficulty Paying Gas/Electric Bills: No Difficulty Paying for Meds: No Currently Unemployed: No Living arrangements: with family Occupation/Education: occupation 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 There is no relevant family history pertinent to the presenting complaint Exam Narrative: GENERAL: Well-appearing, well-nourished, and in no acute distress. HEAD: Normocephalic EYES: PERRLA, conjunctivae clear ENT: Nares clear, turbinate
== END 2022-09-10 19:00 | disposition home or self-care (01) ==
PROVIDERS: Emergency Provider Registered Nurse; PCP Family Medicine
DX: J03.90 Acute tonsillitis, unspecified (principal); I10 Essential (primary) hypertension; E78.2 Mixed hyperlipidemia; Z20.822 Contact with and (suspected) exposure to COVID-19
CPT/HCPCS: 87081; 87426; 87880; 99213; C9803; G0463

== ENCOUNTER 2023-01-25 16:54 | Emergency (ER) | payer BC, SELFPAY ==
[2023-01-25 17:07] VITALS: BP 119/67; PULSE 84; RESP 16; TEMP 36.9; O2SAT 99
--- NOTE | 2023-01-25 17:44 | ED.WOUNDLAC ---
HPI - Wound/Laceration General Chief Complaint: Wound/Laceration Stated Complaint: right finger injury Time Seen by Provider: 01/25/23 17:44 Source: patient, RN notes reviewed and old records reviewed Mode of arrival: ambulatory Limitations: no limitations History of Present Illness HPI narrative: 52-year-old male presents to the [facility] with an injury to the right index finger at the dorsal PIP joint Occurred at 9:00 a.m. this. States he was lifting a box and bumped his finger on the ridge of a garbage can Related Data Home Medications Medication Instructions Recorded Confirmed melatonin 5 mg chewable tablet 5 mg PO HS 11/03/21 01/25/23 Allergies Allergy/AdvReac Type Severity Reaction Status Date / Time No Known Allergies Allergy Verified 01/25/23 17:14 Review of Systems Review of Systems: All systems reviewed & are unremarkable except as noted in HPI and below Constitutional: Constitutional: Reports no additional constitutional complaints Eyes: Eyes: Reports no additional eye complaints ENT: Reports system reviewed and no additional complaints, except as documented Cardiovascular: Cardiovascular: Reports no additional cardiovascular complaints, Denies chest pain and Denies dyspnea Respiratory: Respiratory: Reports no additional respiratory complaints, Denies chest congestion, Denies cough and Denies dyspnea Gastrointestinal: Gastrointestinal: Reports no additional gastrointestinal complaints, Denies abdominal pain, Denies nausea and Denies vomiting Musculoskeletal: Musculoskeletal: Reports no additional musculoskeletal complaints Integumentary/Breasts: Skin/Breast: Reports as per HPI Neurologic: Reports system reviewed and no additional complaints, except as documented Psychiatric: Psychiatric: Reports no additional psychiatric complaints Allergic/Immunologic: Allergic/Immunologic: Reports no additional allergic/immunologic complaints [facility] Past Medical History Medical History Acute anxiety COVID-19 Depression Essential (primary) hypertension History of COVID-19 History of kidney stones Mixed hyperlipidemia OLI (obstructive sleep apnea) Prediabetes Primary hyperparathyroidism Screening for colon cancer Surgical History Surgical History H/O hemorrhoidectomy History of neck surgery Hx of hemorrhoidectomy REUA, excision of Anal Skin tag on 11/14/21 Status post laser lithotripsy of ureteral calculus Status post parathyroidectomy Family History Family History Father , age 59 Esophageal cancer Mother Heart disease Diabetes mellitus Hypertension CKD (chronic kidney disease) Skin cancer Sibling Hypertension Social History Social History Smoking status: Never smoker Second hand tobacco smoke exposure: No Alcohol intake: former Substance use: never Substance use type: does not use Lack of Transportation: No Lack of Food: Never True Current Housing: I Have Housing Concerned About Future Housing: No Difficulty Paying Gas/Electric Bills: No Difficulty Paying for Meds: No Currently Unemployed: No Living arrangements: with family Occupation/Education: occupation 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 There is no relevant family history pertinent to the patient complaint. Exam Const: General: cooperative, healthy appearing, comfortable, no acute distress, well developed, alert and well nourished Nutritional Appearance: well nourished Orientation/consciousness: patient oriented x3 Limitations: no limitations HENMT: Head: normal to inspection Ears: heari
== END 2023-01-25 18:11 | disposition home or self-care (01) ==
PROVIDERS: Emergency Provider Nurse Practitioner; PCP Nurse Practitioner
DX: S69.91XA Unspecified injury of right wrist, hand and finger(s), initial encounter (principal); I10 Essential (primary) hypertension; E78.2 Mixed hyperlipidemia; W45.8XXA Other foreign body or object entering through skin, initial encounter
CPT/HCPCS: 99212; G0463

== ENCOUNTER 2023-12-30 11:45 | Emergency (ER) | payer BC, SELFPAY ==
--- NOTE | ~2023-12-30 | XR_ITS ---
EXAMINATION: XR chest 2V DATE: 12/30/2023 12:18 INDICATION: Cough and wheezing TECHNIQUE: PA and lateral views of the chest were obtained. COMPARISON: Chest radiograph dated 09/05/2016 FINDINGS: The lungs remain clear with no focal airspace opacities, pulmonary edema, pleural effusion or pneumot horax. Heart size is normal. Gas within a small to moderate-sized hiatal hernia. Partially visualized plate and screw fixation for lower cervical anterior spinal fusion. IMPRESSION: 1. No acute cardiopulmonary disease. 2. Small to moderate-sized hiatal hernia. Reviewed, dictated and finalized at location A. OL STILL OPERATOR
[2023-12-30 11:56] VITALS: BP 136/93; PULSE 71; RESP 19; TEMP 36.5; O2SAT 98
--- NOTE | 2023-12-30 12:15 | ED_ITS ---
HPI - URI/Sore Throat General Chief Complaint: Upper Respiratory Infection Stated Complaint: Cough/Wheezing Time Seen by Provider: 12/30/23 11:58 Source: patient and RN notes reviewed Mode of arrival: ambulatory Limitations: no limitations History of Present Illness HPI Narrative: Patient presents today with a 2 week history cough, congestion, postnasal drip, occasional wheezing. Denies shortness of breath, chest pain, fever. He has been taking Mucinex and using an uwlh-tqa-yfzaxmt inhaler without much relief. Patient also states he cut his right 2nd finger on a broken glass last night, sustain some superficial injuries and these injuries have not stopped bleeding. He is up-to-date on his tetanus vaccine. Related Data Home Medications Medication Instructions Recorded Confirmed melatonin 5 mg chewable tablet 5 mg PO HS 11/03/21 12/30/23 Allergies Allergy/AdvReac Type Severity Reaction Status Date / Time No Known Allergies Allergy Verified 12/30/23 11:57 Review of Systems Review of Systems: CONSTITUTIONAL: Denies body aches, fever, chills, or sweats. EYES: Denies visual changes, redness, or discharge. ENT: Denies rhinorrhea, sore throat, or otalgia.+ congestion, postnasal drip CARDIOVASCULAR: Denies chest pain, palpitations, or edema. RESPIRATORY: Denies dyspnea.+ cough, wheezing GASTROINTESTINAL: Denies abdominal pain, nausea, vomiting, or diarrhea. GENITOURINARY: Denies dysuria or hematuria. SKIN: Denies rash, itching. + finger wounds MUSCULOSKELETAL: Denies back pain, joint pain, or myalgia. NEUROLOGIC: Denies headache, numbness, tingling, or weakness. PSYCH: Denies depression or anxiety. [facility] Past Medical History Medical History (Updated 12/30/23 @ 12:50 by Bridgett Nagel, MOLD YARD CRANE OPERATOR, BC) Acute anxiety COVID-19 Depression Essential (primary) hypertension History of COVID-19 History of kidney stones Mixed hyperlipidemia OLI (obstructive sleep apnea) Prediabetes Primary hyperparathyroidism Screening for colon cancer Surgical History Surgical History (Updated 12/30/23 @ 12:50 by Bridgett Nagel, MOLD YARD CRANE OPERATOR, BC) H/O hemorrhoidectomy History of neck surgery History of Tejal fundoplication Hx of hemorrhoidectomy REUA, excision of Anal Skin tag on 11/14/21 Status post laser lithotripsy of ureteral calculus Status post parathyroidectomy Family History Family History Father , age 59 Esophageal cancer Mother Heart disease Diabetes mellitus Hypertension CKD (chronic kidney disease) Skin cancer Sibling Hypertension Social History Social History Smoking status: Never smoker Second hand tobacco smoke exposure: No Alcohol intake: former Substance use: never Substance use type: does not use Lack of Transportation: No Lack of Food: Never True Current Housing: I Have Housing Concerned About Future Housing: No Difficulty Paying Gas/Electric Bills: No Difficulty Paying for Meds: No Currently Unemployed: No Living arrangements: with family Occupation/Education: occupation 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 Please see nursing chart for further information. There is no relevant family history pertinent to the presenting complaint Exam Narrative: GENERAL: Well-appearing, well-nourished, and in no acute distress. HEAD: Normocephalic, atraumatic. EYES: EOMI. No redness or drainage. Conjunctivae normal. ENT: Mucous membranes pink and moist. Nares mildly congested. No rhinorrhea. TMs normal bilaterally. Throat normal. Uvula midline. NECK: Normal AROM. Supple. No lymphadenopathy. CHEST: No respiratory distress. Mild expiratory wheezes throughout, otherwise clear. HEART: Regular rate and rhythm. No murmur appreciated. EXTREMITIES: Normal range of motion. No edema. SKIN: Warm, dry, no rash. Capillary refill normal. Normal skin turgor. Three minor superficial skin avulsions to the right 2nd finger. No active bleeding. Distal sensation intact. Capillary refill normal. Full range of motion. NEURO: No focal deficits. Alert and oriented x3. Gait steady. PSYCH: Normal affect. No signs of depression or anxiety. Course Course Level of Care: Express Care Visit Vital Signs Vital signs: Vital Signs Temperature 97.7 F 12/30/23 11:56 Pulse Rate 71 12/30/23 11:56 Respiratory Rate 19 12/30/23 11:56 Blood Pressure 136/93 H 12/30/23 11:56 Pulse Oximetry 98 12/30/23 11:56 Oxygen Delivery Room Air 12/30/23 11:56 Temperature 97.7 F 12/30/23 11:56 Pulse Rate 71 12/30/23 11:56 Respiratory Rate 19 12/30/23 11:56 Blood Pressure 136/93 H 12/30/23 11:56 Pulse Oximetry 98 12/30/23 11:56 Oxygen Delivery Room Air 12/30/23 11:56 Reviewed MDM - URI/Sore Throat MDM Narrative Medical decision making narrative: X-rays negative for pneumonia. Does show small to moderate-sized hiatal hernia. Patient states he has had a Tejal fundoplication in the past for hiatal hernia. Prescription for Tessalon Perles, prednisone and an albuterol inhaler for his symptoms. Anticipatory guidance given. Small skin avulsions on his finger should heal up without issue. Differential Diagnosis Differential diagnosis: Likely upper respiratory infection, viral infection, bronchitis and other (Pneumonia, skin avulsion, laceration) Imaging Data Radiologist's impression: ITS Impressions Chest X-Ray 12/30/23 12:32 IMPRESSION: 1. No acute cardiopulmonary disease. 2. Small to moderate-sized hiatal hernia. Critical Care Time Critical Care Time Critical Care Time: No Discharge Plan Discharge Clinical Impression: Bronchitis Patient Disposition: Home, Self-Care Condition: Stable Instructions: Acute Bronchitis (ED) Additional Instructions: Your x-rays negative for pneumonia, however, it does show a moderate hiatal hernia. Please take the prednisone, Tessalon Perles, and use albuterol inhaler as directed. Follow-up with your PCP or commercial real estate sales manager in 1 week if symptoms are not improving. Your blood pressure was elevated above 120/80 today at Urgent Care. This puts you above the threshold for follow up. Please schedule a followup visit with your personal physician as soon as possible, for further evaluation and treatment. Even blood pressure exceeding 120/80 may indicate pre-hypertension. Prescriptions: New albuterol sulfate 90 mcg/actuation HFA aerosol inhaler 2 inh inhalation Q4-6H PRN (Reason: shortness of breath or wheezing) Qty: 8.5 0RF benzonatate 200 mg capsule 200 mg PO TID PRN (Reason: cough) Qty: 20 0RF prednisone 50 mg tablet 50 mg PO DAILY 5 Days Qty: 5 0RF (DME) BreatheRite MDI Spacer Spacer See Rx Instructions .ROUTE .MEDSUPPLY Qty: 1 0RF Rx Instructions: As directed No Action melatonin 5 mg Tablet,Chewable 5 mg PO HS metformin 500 mg tablet 500 mg PO DAILY Qty: 90 4RF Rx Instructions: Take with a meal diclofenac sodium 75 mg tablet,delayed release (DR/EC) See Rx Instructions .ROUTE .COMPLEX Qty: 180 1RF Dose Instruction: TAKE 1 TABLET BY MOUTH TWICE A DAY WITH FOOD Rx Instructions: TAKE 1 TABLET BY MOUTH TWICE A DAY WITH FOOD hydrochlorothiazide 25 mg tablet 25 mg PO DAILY Qty: 90 1RF citalopram 40 mg tablet 40 mg PO DAILY Qty: 90 1RF tamsulosin 0.4 mg capsule 0.4 mg PO DAILY Qty: 90 1RF pantoprazole 40 mg tablet,delayed release (DR/EC) See Rx Instructions .ROUTE .COMPLEX Qty: 90 1RF Dose Instruction: TAKE 1 TABLET BY MOUTH EVERY DAY IN THE MORNING Rx Instructions: TAKE 1 TABLET BY MOUTH EVERY DAY IN THE MORNING metoprolol tartrate 100 mg tablet See Rx Instructions .ROUTE .COMPLEX Qty: 180 1RF Dose Instruction: 100 MG ORALLY TWICE A DAY TAKE 1 TABLET BY MOUTH TWICE A DAY Rx Instructions: 100 MG ORALLY TWICE A DAY TAKE 1 TABLET BY MOUTH TWICE A DAY atorvastatin 20 mg tablet See Rx Instructions .ROUTE .COMPLEX Qty: 90 0RF Dose Instruction: TAKE 1 TABLET BY MOUTH EVERY DAY Rx Instructions: TAKE 1 TABLET BY MOUTH EVERY DAY lorazepam 1 mg tablet 1 mg PO DAILY PRN (Reason: anxiety) Qty: 30 0RF Follow-up/Referrals: Brando Ortega MD [Primary Care Provider] - Time of Disposition: 12:49
== END 2023-12-30 12:55 | disposition home or self-care (01) ==
PROVIDERS: Emergency Provider Nurse Practitioner; PCP Family Medicine
DX: J40 Bronchitis, not specified as acute or chronic (principal); I10 Essential (primary) hypertension; E78.2 Mixed hyperlipidemia; R73.03 Prediabetes; E21.0 Primary hyperparathyroidism; Z86.16 Personal history of COVID-19
CPT/HCPCS: 71046; 99213; G0463

== ENCOUNTER 2024-04-03 13:48 | Outpatient (CLI) | payer OTHER, SELFPAY | END 2024-04-03 13:49 | disposition home or self-care (01) | LOC: ANHNEURO 13:49 | PROVIDERS: PCP Family Medicine; Visit Provider Nurse Practitioner Family | DX: G56.03 Carpal tunnel syndrome, bilateral upper limbs (principal) | CPT/HCPCS: 95886; 95911 ==

== ENCOUNTER 2024-06-19 16:14 | Outpatient (CLI) | payer BC, SELFPAY ==
--- NOTE | ~2024-06-19 | XR_ITS ---
XR knee RT 3V 06/19/2024 16:46 Indication: Right knee pain Procedure: 3 views right knee Comparison: 09/02/2018 Findings: There is anatomic alignment. No fracture, subluxation or dislocation. 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 No joint effusion. No forei gn bodies. Mild osteoarthritis. Impression: 1: Stable mild osteoarthritis of the right knee. Reviewed, dictated and finalized at location A. Impression: 1: Stable mild osteoarthritis of the right knee.
--- NOTE | ~2024-06-19 | XR_ITS ---
Cervical Spine: AP, lateral, open-mouth views Clinical History: Radiculopathy Findings: The normal lordotic curve is maintained. There is anterior and interbody fusion from C4 thr ough C7. There is 3 mm retrolisthesis of C3 over C4. There are mild facet joint degenerative changes. Pre-vertebral soft tissues are unremarkable. Impression: Anterior fusion from C4 to C7. 3 mm retrolisthesis of C3 over C4. Reviewed, dictated and finalized at location . Impression: Anterior fusion from C4 to C7. 3 mm retrolisthesis of C3 over C4.
--- NOTE | ~2024-06-19 | XR_ITS ---
XR knee LT 3V 06/19/2024 16:46 Indication: Left knee pain Procedure: 3 views left knee Comparison: 09/02/2018 Findings: Stable mild osteoarthritis lateral compartment of the left knee. No fracture, subluxation o r dislocation. No joint effusion. No foreign bodies. Impression: 1: Stable mild lateral compartment osteoarthritis of the left knee. Reviewed, dictated and finalized at location A. Impression: 1: Stable mild lateral compartment osteoarthritis of the left knee.
--- NOTE | ~2024-06-19 | XR_ITS ---
Right Shoulder Technique: AP and axillary views were obtained. Clinical History: Radiculopathy Findings: No fracture or dislocation is seen. Osseous alignment is anatomic. The glenohumeral and acr omioclavicular joint spaces are preserved. Soft tissues are unremarkable. Impression: Unremarkable right shoulder radiographs. Reviewed, dictated and finalized at [facility]. Impression: Unremarkable right shoulder radiographs.
== END 2024-06-19 16:15 | disposition home or self-care (01) ==
LOC: MICIMG 16:17
PROVIDERS: PCP Family Medicine; Visit Provider Family Medicine
DX: M17.0 Bilateral primary osteoarthritis of knee (principal); M54.10 Radiculopathy, site unspecified; M43.23 Fusion of spine, cervicothoracic region
CPT/HCPCS: 72040; 73030; 73562

== ENCOUNTER 2024-08-21 14:53 | Outpatient (CLI) | payer OTHER, SELFPAY ==
--- OUTSIDE RECORDS SUMMARY | 2024-08-21 15:02 | XMS_ITS | Encounter Summary ---
Author Organization [facility] Address [address] [address] Care Team Providers Care Buildings And Grounds Superintendent Name Role Phone Michael Gonzalez MD Primary Care Provider + Encounter Details Date Type Department Care Team (Late st Contact Info) Description 05/02/2018 Lab Requisition [facility] Care D[facility]Path Lab [address] [facility] [place] [id number] Kristine Nava DO [address] [facility] [address] [place] [address] Social History Tobacco Use Types Packs/Day Years Used Date Smoking Tobacco: Never Assessed Sex and Gender Information Value Date Recorded Sex Assigned at Not on file Legal Sex Male 6:26 PM DIRECTOR OF ATHLETICS Gender Identity Not on file Sexual Orientation Not on file documented as of this encounter Plan of Treatment Not on file documented as of this encounter Procedures Procedure Name Priority Date/Time Associated Diagnosis Comments DERMATOPATHOLOGY Routine 05/01/2018 12:0 0 AM CDT documented in this encounter Results * DERMATOPATHOLOGY (05/01/2018 12:00 AM CDT) Case Report Dermatopathology Report Case: [id number] Authorizing Provider: Kristine Nava DO Collected: 05/01/2018 12:00 AM Pathologist: Madison Sharma MD Received: 05/02/2018 07:51 AM Specimen: Skin, left buddhist 9 12:20 PM CDT DERMATOPATHOLOGY LABORATORY Final Diagnosis Specimen A. SKIN, left buddhist: VERRUCA VULGARIS ([id number]) 9 12:20 PM CDT DERMATOPATHOLOGY LABORATORY at 1220 CDT Clinical History SK vs atypia. Growing. 12:20 PM CDT DERMATOPATHOLOGY LABORATORY Gross Description Specimen A: Received is one formalin filled container labeled with the patient's name and designated left buddhist. The specimen consists of a shave measuring [id number]. Jar 0. 12:20 PM CDT DERMATOPATHOLOGY LABORATORY Microscopic Description Specimen A. SKIN, left buddhist: There is digitated epidermal hyperplasia, hypergranulosis, vacuolated granular layer cells, and compact hyperorthokeratosis . 12:20 PM CDT DERMATOPATHOLOGY LABORATORY Disclaimer An external and internal positive and negative controls are appropriate for the histochemical, immunohistochemical and immunofluorescence stain(s) in this case (if any), except where stated explicitly. The performance characteristics of the stain(s) cited in this report were developed and its performance characteristic determined by the Dermatopathology Laboratory at [facility], directed by Dr. Kaylen Cavanaugh. These tests need not be, and therefore are not, approved by the [place] Food and Drug Administration. The tests are used for clinical purposes. Billing Codes Specimen Charges Stain Charges 85767 1 12:20 PM CDT DERMATOPATHOLOGY LABORATORY Embedded Images 12:20 PM CDT DERMATOPATHOLOGY LABORATORY Pathology/Cytolog y TISSUE SPECIMEN FROM SKIN / Unknown 05/01/2018 05/02/2018 7:51 AM CDT us Kristine Nava DO LAB - PATHOLOGY/CYTOLOGY ORDERABLES Final Result DERMATOPATHOLOGY LABORATORY [facility] - Department of Dermatology [address] [place] [address], 5th Floor Lab [address] [place], [place] [id number] [place] [address] documented in this encounter Visit Diagnoses Not on filedocumented in this encounter Care Teams Buildings And Grounds Superintendent Relationship Specialty Start Date End Date Michael Gonzalez MD [address] [place] [id number] PCP - General 05/13/08 documented as of this encounter
--- OUTSIDE RECORDS SUMMARY | 2024-08-21 15:02 | XMS_ITS | Referral Summary ---
Author Organization [facility] Address [address] [place] [address] Care Team Providers Care Cash Sales Audit Clerk Name Role Phone Millie Abebe MD Unavailable [phone] Evangelina Alvarado MD Primary Care Provider + Allergies No known active allergies Medications atorvastatin (LIPITOR) 20 mg tablet Take 20 mg by mouth. 8 Active citalopram (CeleXA) 40 mg tablet Take 1 tablet by mouth. [address] (PROTONIX) 40 mg EC tablet Take 1 tablet by mouth 2 (two) times a day 8 Active tacrolimus (PROTOPIC) 0.1 % ointment Apply topically 2 (two) times a day as needed Active metoprolol (LOPRESSOR) 100 mg tablet Take 100 mg by mouth 2 (two) times a day 1 9 Active lisinopril (PRINIVIL,ZESTR IL) 20 mg tablet Take 20 mg by mouth daily 1 9 Active hydroCHLOROthia zide (HYDRODIURIL) 25 mg tablet Take 25 mg by mouth daily 2 9 Active Active Problems Problem Noted Date Diagnosed Date Abnormal EKG 12/16/2018 Epigastric discomfort 12/16/2018 Shortness of breath 12/16/2018 Anxiety and depression 05/11/2017 Overview (09/03/2017): Last Assessment & Plan: Chronic. - Continue home citalopram HLD (hyperlipidemia) 05/11/2017 Overview (09/03/2017): Last Assessment & Plan: Chronic. - Continue home atorvastatin Hydronephrosis with renal and ureteral calculus obstruction 05/11/2017 Overview (09/03/2017): Last Assessment & Plan: Acute, unresolved. Diagnosed with R sided nephrolithiasis by his PCP 05/08. Failed conservative measures; pain uncontrolled with tramadol today. CT in the ED showing severe right sided hydronephrosis with 11x18 mm stone in the R ureteropelvic junction. No signs of symptoms of infection. - Urology consulted from the ED, appreciate recommendations - Toradol, nubain prn for pain control - NS @ 100cc/hr - NPO at midnight for possible urologic procedure Hypertension 05/11/2017 Overview (09/03/2017): Last Assessment & Plan: Chronic Goal <140/90 based on JNC 8, slightly above goal since presentation into the 140s/100s. Likely pain related. - Continue home atenolol - Pain control as below - Continue to monitor Social History Tobacco Use Types Packs/Day Years Used Date Smoking Tobacco: Never Tobacco Cessation:Counseling Given: No Personal Safety Answer Date Recorded Getting School Help Needed Not on file 04/20 Sex and Gender Information Value Date Recorded Sex Assigned at Not on file Legal Sex Male 2:03 AM HOUSING MANAGER Gender Identity Not on file Sexual Orientation Not on file Last Filed Vital Signs Vital Sign Reading Time Taken Comments Blood Pressure 108/60 12/16/2018 3:22 PM HOUSING MANAGER Pulse 86 12/16/2018 3:22 PM HOUSING MANAGER Temperature - - Respiratory Rate - - Oxygen Saturation 94% 12/16/2018 3:22 PM HOUSING MANAGER Inhaled Oxygen Concentration - - Weight 112.5 kg (248 lb) 12/16/2018 3:22 PM HOUSING MANAGER Height 188 cm (6' 2) 09/03/2017 10:04 AM CDT Body Mass Index 31.84 09/03/2017 10:04 AM CDT Plan of Treatment Not on file Insurance [facility] CHOICE PLUS [facility] C[employer] PLAN Care Teams Cash Sales Audit Clerk Relationship Specialty Start Date End Date Evangelina Alvarado MD [address] [place] [id number] PCP - General 02/10/19 Millie Abebe MD [address] [place] [address] Box Stapler Cardiovascular Disease 12/13/18
--- OUTSIDE RECORDS SUMMARY | 2024-08-21 15:02 | XMS_ITS | Clinical Summary ---
Author Organization [facility] Address [address] [facility] [place] [address] Care Team Providers Care Employee Operations Examiner Name Role Phone Michael Gonzalez MD Primary Care Provider + Source Comments [facility] [employer],non-owned Affiliates and Associated Physician Practices is amultiple site organization consisting of ambulatory clinics and hospital sitesin [place], [place], [place] and [place]. This disclosure is being madepursuant to the Care Everywhere program and may not contain all information available regarding this patient. Last updated 17.[facility] [employer] Social History Tobacco Use Types Packs/Day Years Used Date Smoking Tobacco: Never Assessed Sex and Gender Information Value Date Recorded Sex Assigned at Not on file Legal Sex Male 6:26 PM APPOINTMENT MANAGER Gender Identity Not on file Sexual Orientation Not on file Plan of Treatment Health Maintenance Due Date Last Done Comments COLOGUARD (AGES 45-75) - COL ON CA SCREENING 1968 COLON MONITORING 1968 COLONOSCOPY - COLON CA SCREENING 1968 CT COLONOGRAPHY - COLON CA SCREENING 1968 Colorectal Cancer Screening 1968 FIT - COLON CA SCREENING 1968 FLEX SIG - COLON CA SCREENING 1968 LIPID TESTING 1968 HIV SCREENING 02/15/1983 HEPATITIS C SCREENING 02/11/1986 DTAP/TDAP/TD VACCINES (1 - Tdap) 02/15/1987 HEPATITIS B VACCINE (1 of 3 - 19+ 3-dose series) 02/15/1987 PNEUMOCOCCAL VACCINE 50+ (1 of 1 - PCV) 02/15/2018 ZOSTER VACCINE (1 of 2) 02/15/2018 COVID-19 VACCINE ( - 2023-2 5 season) 2023 DEPRESSION SCREENING 02/06/2024 INFLUENZA VACCINE (#1) 2024 HIB VACCINE Aged Out No longer eligi ble based on patient's age to complete this topic HPV VACCINE Aged Out No longer eligi ble based on patient's age to complete this topic MENINGOCOCCAL (Group B) VACC INE SHARED DECISION-MAKING Aged Out No longer eligibl e based on patient's age to complete this topic MENINGOCOCCAL GROUPS A/C/Y/W VACCINE Aged Out No longer eligible b ased on patient's age to complete this topic Insurance [facility] Address: [facility] [id number] [place] [address] Care Teams Employee Operations Examiner Relationship Specialty Start Date End Date Michael Gonzalez MD [address] [address] PCP - General 05/13/08
--- OUTSIDE RECORDS SUMMARY | 2024-08-21 15:02 | XMS_ITS | Encounter Summary ---
Author Organization [facility] Address [facility] [place] [address] Care Team Providers Care Egg Caser Name Role Phone Aristeo Flood DO Primary Care Provider [phone] Brando Ortega MD Primary Care Provider [phone] Encounter Details Date Type Department Care Team (Late st Contact Info) Description 11/08/2019 Prep for Procedure [facility] Pre-Admission Testing [place], [place] [id number] Evangelina Alvarado MD [address] [place] [address] Social History Tobacco Use Types Packs/Day Years Used Date Smoking Tobacco: Never Smokeless Tobacco: Never Alcohol Use Standard Drinks/Week Comments Not Currently 0 (1 standard drink = 0.6 oz pur e alcohol) occasionally Sex and Gender Information Value Date Recorded Sex Assigned at Male 03/17/2024 8:48 AM MANAGER GALLERY Legal Sex Male 4:21 PM CDT Gender Identity Not on file Sexual Orientation Not on file COVID-19 Exposure Response Date Recorded In the last month, have you been in contact with someone who was confirmed or suspected to have Coronavirus / COVID-19? No / Unsure 11/11/2019 9:20 AM CDT documented as of this encounter Plan of Treatment Upcoming Encounters Date Type Department Care Team (Late st Contact Info) Description 12/22/2024 10:20 AM MANAGER GALLERY Telemedicine [facility] Medical Group Multispecialty Care - [facility] [address] [facility] [facility] [place] [address] Osman Doherty MD [address] [address] [place] [address] documented as of this encounter Results * PRE-SURGICAL/PRE-PROCEDURE CORONAVIRUS (COVID 19) (11/08/2019 11:50 AM CDT) CORONAVIRUS SARS COV 2 PCR (RESP) NOT DETECTED NOT DETECTED 11/09/2019 1:25 PM CDT [facility] Comment: A Not Detected (negative) test result for this test means that SARS- CoV-2 RNA was not present in the specimen above the limit of detection. A negative result does not rule out the possibility of COVID-19 and should not be used as the sole basis for treatment or patient management decisions. If COVID-19 is still suspected, based on exposure history together with other clinical findings, re-testing should be considered in consultation with public health authorities. Laboratory test results should always be considered in the context of clinical observations and epidemiological data in making a final diagnosis and patient management decisions. Please review the Fact Sheets and FDA authorized labeling available for health care providers and patients using the following websites: https://www.[employer].com/home/Covid-19/HCP/NAAT/fact-sheet2 https://www.[employer].Patient [employer]agement Systems/home/Covid-19/Patients/NAAT/ fact-sheet2 This test has been authorized by the FDA under an Emergency Use Authorization (EUA) for use by authorized laboratories. Due to the current public health emergency, [facility] is receiving a high volume of samples from a wide variety of swabs and media for COVID-19 testing. In order to serve patients during this public health crisis, samples from appropriate clinical sources are being tested. Negative test results derived from specimens received in non-commercially manufactured viral collection and transport media, or in media and sample collection kits not yet authorized by FDA for COVID-19 testing should be cautiously evaluated and the patient potentially subjected to extra precautions such as additional clinical monitoring, including collection of an additional specimen. Methodology: Nucleic Acid Amplification Test (NAAT) includes PCR or TMA Additional information about COVID-19 can be found at the [facility] website: www.[employer].com/Covid19. Test performed at [facility] [place] [address] [id number] Director: AGUEDA BRISCOE DO,MPH FIRST TEST YES 11/08/2019 2:08 PM CDT [facility] EMPLOYED IN HEALTHCARE NO 11/08/2019 2:08 PM CDT [facility] SYMPTOMATIC DEFINED BY CDC NO 11/08/2019 2:08 PM CDT [facility] DATE OF SYMPTOM ONSET NO 11/08/2019 5:26 PM CDT [facility] HOSPITALIZATION STATUS NO 11/08/2019 2:08 PM CDT [facility] PATIENT IN ICU NO 11/08/2019 2:08 PM CDT [facility] NO 11/08/2019 2:08 PM CDT [facility] NOT 11/08/2019 5:26 PM CDT [facility] PATIENT'S RACE WHITE OR 11/08/2019 2:08 PM CDT [facility] ETHNICITY NONHISPANIC 11/08/2019 2:08 PM CDT [facility] SOURCE (QST) NASOPHARYNGEAL SWAB 11/08/2019 2:08 PM CDT [facility] NASOPHARYNGEAL SWAB / Unknown 11/08/2019 11:50 AM CDT us Evangelina Alvarado MD MICROBIOLOGY - GENERAL YAMILET LORENZO Final Result [facility] [address] [place] [address], [place] [phone] [place] [address] [place] [address], documented in this encounter Visit Diagnoses Diagnosis Preoperative testing- Primary Preoperative examination, unspecified documented in this encounter Additional Health Concerns Infection Onset Date Last Indicated Resolved Time COVID-19 Rule Out 11/08/2019 11/08/2019 11/09/2019 1:25 PM CDT documented as of this encounter Care Teams Egg Caser Relationship Specialty Start Date End Date Aristeo Flood DO [address] [address] PCP - General INTERNAL MEDICINE 11/03/19 02/13/23 Brando Ortega MD [address] [place] [address] PCP - General FAMILY PRACTICE 02/14/23 documented as of this encounter
--- OUTSIDE RECORDS SUMMARY | 2024-08-21 15:02 | XMS_ITS | Clinical Summary ---
Author Organization [facility] Medical Office Building B Address [address] [place] [address] Care Team Providers Care Accounting Manager Controller Name Role Phone Millie Abebe MD Unavailable [phone] Evangelina Alvarado MD Primary Care Provider + [...] control as below - Continue to monitor Medical History Medical History Date Comments Hypertension Family History Medical History Relation Name Comments Nephrolithiasis Mother Relation Name Status Comments Mother Social History Tobacco Use Types Packs/Day Years Used Date Smoking Tobacco: Never Tobacco Cessation:Counseling Given: No Personal Safety Answer Date Recorded Getting School Help Needed Not on file 04/20 Sex and Gender Information Value Date Recorded Sex Assigned at Not on file Legal Sex Male 2:03 AM DISHWASHING MACHINE REPAIRER Gender Identity Not on file Sexual Orientation Not on file Obstetrics History Last Filed Vital Signs Vital Sign Reading Time Taken Comments Blood Pressure 108/60 12/16/2018 3:22 PM DISHWASHING MACHINE REPAIRER Pulse 86 12/16/2018 3:22 PM DISHWASHING MACHINE REPAIRER Temperature - - Respiratory Rate - - Oxygen Saturation 94% 12/16/2018 3:22 PM DISHWASHING MACHINE REPAIRER Inhaled Oxygen Concentration - - Weight 112.5 kg (248 lb) 12/16/2018 3:22 PM DISHWASHING MACHINE REPAIRER Height 188 cm (6' 2) 09/03/2017 10:04 AM CDT Body Mass Index 31.84 09/03/2017 10:04 AM CDT Plan of Treatment Not on file Insurance [facility] CHOICE PLUS [facility] CORE HE[employer] PLAN Care Teams Accounting Manager Controller Relationship Specialty [place] [address] [place] [address] PCP - General 02/10/19 Millie Abebe MD [address] [facility] [place] [address] Bronze Plater Cardiovascular Disease 12/13/18
--- OUTSIDE RECORDS SUMMARY | 2024-08-21 15:02 | XMS_ITS | Clinical Summary ---
Author Organization [facility] Address [facility] [place] [address] Care Team Providers Care Chemical Handler Name Role Phone Brando Ortega MD Primary Care Provider [phone] Allergies No known active allergies Medications atorvastatin 20 MG tablet Take 1 tablet (20 mg total) by mouth nightly at bedtime. 3 8 Active citalopram 40 MG tablet Take 1 tablet (40 mg total) by mouth nightly. 8 Active pantoprazole 40 MG tablet Take 1 tablet (40 mg total) by mouth daily. 8 Active diclofenac EC 75 MG tabletIndications :Do not take diclofenac for 3 days but resume it following that. Take 1 tablet (75 mg total) by mouth daily. Indications: Do not take diclofenac for 3 days but resume it following that. 8 Active tacrolimus 0.1 % ointmentIndicatio ns:fungal rash on scrotum Apply topically 2 (two) times daily. Active metoprolol tartrate 100 MG tablet Take 1 tablet (100 mg total) by mouth 2 (two) times daily. 0 Active hydroCHLOROthiazi de 25 MG tablet Take 1 tablet (25 mg total) by mouth daily. 0 Active Melatonin 2.5 MG Chew Tab Chew 1-2 tablets by mouth daily. Active metFORMIN (GLUCOPHAGE) 500 MG tablet 500 MG ORALLY DAILY TAKE WITH A MEAL 3 Active LORazepam (ATIVAN) 1 MG tablet Take 1 tablet (1 mg total) by mouth daily as needed for Anxiety. 3 Active fluticasone-salme terol (ADVAIR DISKUS) 250-50 MCG/ACT inhalerIndication s:Wheezing Inhale 1 puff into the lungs 2 (two) times daily. rinse gargle and spit after use. 90 each 3 5 Active Albuterol-Budeson estuardo (AIRSUPRA) 90-80 MCG/ACT AerosolIndication s:Moderate persistent asthma without complication (HHS/HCC) Inhale 2 puffs into the lungs every 4 (four) hours as needed. Rinse and spit after use 10.7 g 3 5 Active Active Problems Problem Noted Date Diagnosed Date Hydronephrosis with renal and ureteral calculus obstruction 05/11/2017 Assessment & Plan (05/11/2017 8:30 PM CDT): Acute, unresolved. Diagnosed with R sided nephrolithiasis [...] midnight for possible urologic procedure Hypertension 05/11/2017 Assessment & Plan (05/11/2017 8:07 PM CDT): Chronic Goal <140/90 based on JNC 8, slightly above goal since presentation into the 140s/100s. Likely pain related. - Continue home atenolol - Pain control as below - Continue to monitor HLD (hyperlipidemia) 05/11/2017 Assessment & Plan (05/11/2017 8:07 PM CDT): Chronic. - Continue home atorvastatin Anxiety and depression 05/11/2017 Assessment & Plan (05/11/2017 8:08 PM CDT): Chronic. - Continue home citalopram KRISTIN (acute kidney injury) 05/11/2017 Assessment & Plan (05/11/2017 10:25 PM CDT): Uncontrolled. Cr 1.37 on admission; baseline unknown. Obstructive etiology given ureteral stone, hydronephrosis. - Will need stone removal for definite treatment - Trend with daily BMP Encounters Date Type Department Care Team Description 06/09/2024 1:20 PM CDT Telemedicine [facility] Medical Group Multispecialty Care - [facility] [address] [facility] [place] [id number] Osman Doherty MD Asthma; Obstructive Sleep Apnea from Last 3 Months Immunizations Immunization Administration Dates Next Due Fluzone 6 Months+ Quad (0.5 mL Prefilled Syringe ) 09/21/2019,12/08/2018 Family History Medical History Relation Comments Alcohol Abuse Brother Hyperlipidemia Brother Hypertension Brother Cancer Father Cancer Mother Coronary artery disease Mother Crohns Disease Mother Diabetes Mother Hyperlipidemia Mother Hypertension Mother Kidney Disease Mother starting dialysi s Kidney Stones Mother Relation Status Comments Brother Alive Father (Age 59) cancer Mother Alive Social History Tobacco Use Types Packs/Day Years Used Date Smoking Tobacco: Never Smokeless Tobacco: Never Tobacco Cessation:Counseling Given: Not Answered Alcohol Use Standard Drinks/Week Comments Not Currently 0 (1 standard drink = 0.6 oz pur e alcohol) occasionally PHQ-2 Answer Date Recorded Patient Health Questionnaire-2 Score 0 02/15/2022 Sex and Gender Information Value Date Recorded Sex Assigned at Male 03/17/2024 8:48 AM BOARDING HOUSE MANAGER Legal Sex Male 4:21 PM CDT Gender Identity Not on file Sexual Orientation Not on file Last Filed Vital Signs Vital Sign Reading Time Taken Comments Blood Pressure 129/85 08/16/2023 2:03 PM CDT Pulse 80 08/16/2023 2:03 PM CDT Temperature 36.3 C (97.3 F) 08/16/2023 2:03 PM CDT Respiratory Rate 16 08/16/2023 2:03 PM CDT Oxygen Saturation 96% 08/16/2023 2:03 PM CDT ra Inhaled Oxygen Concentration - - Weight 103.4 kg (228 lb) 04/13/2023 1:04 PM BOARDING HOUSE MANAGER Height 190.5 cm (6' 3) 08/16/2023 2:03 PM CDT Body Mass Index 28.5 04/13/2023 1:04 PM BOARDING HOUSE MANAGER Plan of Treatment Upcoming Encounters Date Type Department Care Team (Late st Contact Info) Description 12/22/2024 10:20 AM BOARDING HOUSE MANAGER Telemedicine [facility] Medical Group Multispecialty Care - [facility] [address] [facility] [place] [address] Osman Doherty MD [address] [facility] [address] [place] [address] Health Maintenance Due Date Last Done Comments Colorectal Cancer Screening Colonoscopy (10 Years) 1968 Annual Physical 02/15/1971 COVID-19 Vaccine (#1) 02/15/1973 Hepatitis C 02/15/1986 DTaP, Tdap and Td Vaccines ( 1 - Tdap) 02/15/1987 Hepatitis B Vaccines (1 of 3 - 19+ 3-dose series) 02/15/1987 Pneumococcal Vaccine: 50+ Ye ars (1 of 2 - PCV) 02/15/1987 Zoster Vaccines (1 of 2) 02/15/1987 PHQ-2 (Physician [place]) 02/06/2024 Meningococcal B Vaccine Aged Out No l onger eligible based on patient's age to complete this topic Meningococcal Vaccine Aged Out No kaylie saige eligible based on patient's age to complete this topic RSV Immunizations Under 20 Months Aged Out No longer eligible based on patient's age to complete this topic Medical Devices Implanted Type Area Technical Specialist Cytogenetics Device Identifier Shelf Expiration Date Model / Serial / Lot Inlay Versa Fit Stent Implanted:Qty: 1 on 05/12/2017 by Jose Armando Garcia MD at [facility] Stent Right: Ureter [employer] 12/04/2020 [id number] / / [id number] Insurance [facility] Advance Directives * Full Code (Latest Code Status on File) Date Activated Date Inactivated Comments 04/29/2018 3:23 PM 04/29/2018 6:56 PM * Full Code Date Activated Date Inactivated Comments 05/14/2017 12:54 PM 05/14/2017 3:52 PM * Full Code Date Activated Date Inactivated Comments 05/11/2017 7:08 PM 05/12/2017 6:48 PM Care Teams Chemical Handler Relationship Specialty Start Date End Date Brando Ortega MD [address] [place], [place] [id number] PCP - General FAMILY PRACTICE 02/14/23
--- OUTSIDE RECORDS SUMMARY | 2024-08-21 15:02 | XMS_ITS | Clinical Summary ---
Author Organization [place] [address] [facility] Address [address] [place] [address] Care Team Providers Care Pharmacist Technician Name Role Phone Aristeo Flood DO Primary Care Provider [phone] Allergies No known active allergies Medications hydroCHLOROthia zide 25 mg tablet Take 25 mg by mouth daily. 10/18/2018 Active melatonin 2.5 mg Tablet, Chewable Take 1-2 Tablets by mouth nightly as needed. Active metoprolol tartrate (LOPRESSOR) 100 mg tablet Take 100 mg by mouth 2 times daily. 09/11/2018 Active diclofenac sodium (VOLTAREN) 50 mg Tablet, Delayed Release (E.C.) Take 50 mg by mouth 2 times daily. Active atorvastatin (LIPITOR) 20 mg tablet Take 20 mg by mouth daily at bedtime. Active citalopram (CeleXA) 40 mg tablet Take 40 mg by mouth daily at bedtime. Active LORazepam (ATIVAN) 0.5 mg tablet TAKE 1 TABLET BY MOUTH 3 TIMES A DAY NEEDED FOR ANXIETY 04/19/2021 Active HYDROcodone-rehan taminophen (NORCO) 5-325 mg tablet 11/14/2021 Active Active Problems Problem Noted Date Diagnosed Date DDD (degenerative disc disease), cervical 2020 Cervical spondylosis with radiculopathy 05/25/19 21 S/P cervical spinal fusion Social History Tobacco Use Types Packs/Day Years Used Date Smoking Tobacco: Never Smokeless Tobacco: Never Tobacco Cessation:Counseling Given: No Alcohol Use Standard Drinks/Week Comments Never 0 (1 standard drink = 0.6 oz pur e alcohol) Sex and Gender Information Value Date Recorded Sex Assigned at Not on file Legal Sex Male 11:26 AM CDT Gender Identity Not on file Sexual Orientation Not on file Last Filed Vital Signs Vital Sign Reading Time Taken Comments Blood Pressure 137/78 11/02/2020 8:30 AM CDT Pulse 79 11/02/2020 8:30 AM CDT Temperature 36.5 C (97.7 F) 11/02/2020 8:30 AM CDT Respiratory Rate 18 11/02/2020 8:30 AM CDT Oxygen Saturation 95% 11/02/2020 8:30 AM CDT Inhaled Oxygen Concentration - - Weight 103.4 kg (228 lb) 11/18/2021 2:04 PM CDT Height 188 cm (6' 2) 11/18/2021 2:04 PM CDT Body Mass Index 29.27 11/18/2021 2:04 PM CDT Plan of Treatment Health Maintenance Due Date Last Done Comments DTAP/TDAP/TD VACCINES (1 - Tdap) 02/15/1987 HEPATITIS B VACCINES (1 of 3 - 19+ 3-dose series) 02/15/1987 COLORECTAL SCREENING 02/15/2013 Colorectal Cancer Screening 02/15/2013 FIT-DNA Q 3 years 02/15/2013 FIT/FOBT Q 1 year 02/15/2013 Flex Sig/CT Colonography Q 5 years 02/15/2013 ZOSTER VACCINE (1 of 2) 02/15/2018 INFLUENZA VACCINE (#1) 2024 09/21/2019, 2018 Medical Devices Implanted Type Area Under Sheriff Device Identifier Shelf Expiration Date Model / Serial / Lot Hemostatic Surgiflo 8ml W/ Thrombin 2994 - Old - Sna Implanted:Qty : 1 on 11/01/2020 by Krzysztof Liu MD at [facility] Hemostatic N/A: Spine Cervical Anterior [employer] 03/07/2022 [id number] / NA / [id number] Hemostatic Surgifoam Sz12-7 1971 - Sna Implanted:Qty : 1 on 11/01/2020 by rKzysztof Liu MD at [facility] Hemostatic Right: Spine Cervical Anterior J[employer]J- [employer] 04/21/2024 1972 / NA / [id number] Plate Zevo Ac 3lvl Ti 61mm [id number] - Sna Implanted:Qty : 1 on 11/01/2020 by Krzysztof Liu MD at [facility] Plate Right: Spine Cervical Anterior [employer]OR [employer]ANEK [id number] / NA / NA Description:Load no: [id number] Sterilized: 10/28/2020 LAITH REQ#[id number] Screw Zevo [address] 3.5x13mm [id number] - Sna Implanted:Qty : 8 on 11/01/2020 by Krzysztof Liu MD at [facility] Screw Right: Spine Cervical Anterior [employer] [id number] / NA / NA Description:Load no: [id number] Sterilized: 10/28/2020 Allograft L-Asr [id number] - [id number] Implanted:Qty : 1 on 11/01/2020 by Krzysztof Liu MD at [facility] Tissue Right: Spine Cervical Anterior [employer] 12/23/2022 [id number] / [id number] / [id number] Description: LAITH REQ#[id number] Bone Lordotic Asr 146842 - [id number] Implanted:Qty : 1 on 11/01/2020 by Krzysztof Liu MD at [facility] Tissue Right: Spine Cervical Anterior [employer] 04/21/2023 [id number] / [id number] / [id number] Bone Lordotic Asr [id number] - [id number] Implanted:Qty : 1 on 11/01/2020 by Krzysztof Liu MD at [facility] Tissue Right: Spine Cervical Anterior [employer] 02/02/2023 [id number] / [id number] / [id number] Insurance [place] BLUE ACCESS/TRUE BLUE PPO RX [facility] Advance Directives For more information, please contact: [phone] * Full Code (Latest Code Status on File) Date Activated Date Inactivated Comments 11/01/2020 11:36 AM 11/02/2020 5:09 PM Care Teams Pharmacist Technician Relationship Specialty Start Date End Date Aristeo Flood DO [address] [facility] [address] [facility] [address] [place] [address] PCP - General Internal Medicine 05/20/20
--- NOTE | 2024-08-21 15:16 | ECG_ITS ---
Test Date: 2024-08-21 15:28:44 Measurements Intervals [place] Rate: 65 P: 6 [place]: 155 QRS: -20 QRSD: 103 T: 34 QT: 415 QTc: 434 Interpretive Statements SINUS RHYTHM NORMAL ELECTROCARDIOGRAM No previous ECG available for comparison Electronically Signed On 08-22-2024 07:32:27 CDT by Trevor Savage M.D.
[2024-08-21 15:50] LABS: Anion Gap 7 mmol/L (4-12); Blood Urea Nitrogen 27 mg/dL (9-20); Calcium 8.9 mg/dL (8.4-10.2); Carbon Dioxide 29 mmol/L (22-30); Chloride 102 mmol/L (98-107); Estimated Glomerular Filt Rate > 60; Glucose 87 mg/dL (65-110); Potassium 3.7 mmol/L (3.4-5.0); Sodium 138 mmol/L (137-145)
== END 2024-08-21 14:54 | disposition home or self-care (01) ==
LOC: ANHLAB 14:56
PROVIDERS: PCP Family Medicine; Visit Provider Anesthesiology
DX: E11.9 Type 2 diabetes mellitus without complications (principal); I10 Essential (primary) hypertension
CPT/HCPCS: 36415; 80048; 93005

== ENCOUNTER 2024-08-28 06:11 | Day surgery (SDC) | payer OTHER, SELFPAY ==
--- OUTSIDE RECORDS SUMMARY | 2024-08-28 06:35 | XMS_ITS | Clinical Summary ---
Author Organization [facility] Address [facility] [place] [address] Care Team Providers Care Film Sorter Name Role Phone Brando Ortega MD Primary Care Provider [phone] Allergies No known active allergies Medications atorvastatin [...] Team Description 06/09/2024 1:20 PM CDT Telemedicine [facility] Medical Group Multispecialty Care - [facility] [address] [facility] [place] [id number] Osman Doherty MD Asthma; Obstructive Sleep Apnea [...] Sex Assigned at Male 03/17/2024 8:48 AM OPEN END SPINNING OPERATOR Legal Sex Male 4:21 PM CDT Gender [...] 103.4 kg (228 lb) 04/13/2023 1:04 PM OPEN END SPINNING OPERATOR Height 190.5 cm (6' 3) 08/16/2023 2:03 PM CDT Body Mass Index 28.5 04/13/2023 1:04 PM OPEN END SPINNING OPERATOR Plan of Treatment Upcoming Encounters Date Type Department Care Team (Late st Contact Info) Description 12/22/2024 10:20 AM OPEN END SPINNING OPERATOR Telemedicine [facility] Medical Group Multispecialty Care - [facility] [address] [facility] [place] [address] Osman Doherty MD [address] [facility] [address] [place] [address] Health Maintenance Due Date Last Done Comments [...] Vaccines (1 of 2) 02/15/1987 PHQ-2 (Physician [place]) 02/06/2024 Meningococcal B Vaccine Aged Out No l onger eligible based on patient's age to complete this topic Meningococcal Vaccine Aged Out No kaylie saige eligible based on patient's age to complete this topic RSV Immunizations Under 20 Months Aged Out No longer eligible based on patient's age to complete this topic Medical Devices Implanted Type Area Rn Womens Health Device Identifier Shelf Expiration Date Model / Serial / Lot Inlay Versa Fit Stent Implanted:Qty: 1 on 05/12/2017 by Jose Armando Garcia MD at [facility] Stent Right: Ureter [employer] 12/04/2020 [id number] / / [id number] Insurance [facility] Advance Directives * Full Code (Latest Code Status on File) Date Activated Date Inactivated Comments 04/29/2018 3:23 PM 04/29/2018 6:56 PM * Full Code Date Activated Date Inactivated Comments 05/14/2017 12:54 PM 05/14/2017 3:52 PM * Full Code Date Activated Date Inactivated Comments 05/11/2017 7:08 PM 05/12/2017 6:48 PM Care Teams Film Sorter Relationship Specialty Start Date End Date Brando Ortega MD [address] [place], [place] [id number] PCP - General FAMILY PRACTICE 02/14/23
--- OUTSIDE RECORDS SUMMARY | 2024-08-28 06:35 | XMS_ITS | Clinical Summary ---
Author Organization [employer] [address] [facility] Address [address] [place] [address] Care Team Providers Care Bank Runner Name Role Phone Aristeo Flood DO Primary Care Provider [phone] Allergies No known active allergies Medications hydroCHLOROthia [...] 09/21/2019, 2018 Medical Devices Implanted Type Area Soccer Commentator Device Identifier Shelf Expiration Date Model / Serial / Lot Hemostatic Surgiflo 8ml W/ Thrombin 2994 - Old - Sna Implanted:Qty : 1 on 11/01/2020 by Krzysztof Liu MD at [facility] Hemostatic N/A: Spine Cervical Anterior J[employer]- [employer] 03/07/2022 2994 / NA / [id number] Hemostatic Surgifoam Sz12-7 1971 - Sna Implanted:Qty : 1 on 11/01/2020 by Krzysztof Liu MD at [facility] Hemostatic Right: Spine Cervical Anterior J[employer]J- [employer] 04/21/2024 1972 / NA / [id number] Plate Zevo Ac 3lvl Ti 61mm [id number] - Sna Implanted:Qty : 1 on 11/01/2020 by Krzysztof Liu MD at [facility] Plate Right: Spine Cervical Anterior [employer] SOFAMOR DANEK [id number] / NA / NA Description:Load no: [id number] 05 Sterilized: 10/28/2020 LAITH REQ#[id number] Screw Zevo [address] 3.5x13mm [id number] - Sna Implanted:Qty : 8 on 11/01/2020 by Krzysztof Liu MD at [facility] Screw Right: Spine Cervical Anterior [employer] SOFAMOR DANEK [id number] / NA / NA Description:Load no: 212 [id number] 05 Sterilized: 10/28/2020 Allograft L-Asr [id number] - [id number] Implanted:Qty : 1 on 11/01/2020 by Krzysztof Liu MD at [facility] Tissue Right: Spine Cervical Anterior [employer] 12/23/2022 [id number] / [id number] / [id number] Description: LAITH REQ#[id number] Bone Lordotic Asr [id number] - [id number] Implanted:Qty : 1 on 11/01/2020 by Krzysztof Liu MD at [facility] Tissue Right: Spine Cervical Anterior [employer] 04/21/2023 [id number] / [id number] / [id number] Bone Lordotic Asr [id number] - [id number] Implanted:Qty : 1 on 11/01/2020 by Krzysztof Liu MD at [facility] Tissue Right: Spine Cervical Anterior [employer] 02/02/2023 [id number] / [id number] / [id number] Insurance BS BLUE ACCESS/TRUE BLUE PPO RX [facility] Advance Directives For more information, please contact: [phone] * Full Code (Latest Code Status on File) Date Activated Date Inactivated Comments 11/01/2020 11:36 AM 11/02/2020 5:09 PM Care Teams Bank Runner Relationship Specialty Start Date End Date Aristeo Flood DO [address] [facility] [address] [facility] [address] [place] [address] PCP - General Internal Medicine 05/20/20
--- OUTSIDE RECORDS SUMMARY | 2024-08-28 06:35 | XMS_ITS | Encounter Summary ---
Author Organization [facility] Address [address] [place] [address] Care Team Providers Care Med Aide Name Role Phone Michael Gonzalez MD Primary Care Provider + Encounter Details Date Type Department Care Team (Late st Contact Info) Description 05/02/2018 Lab Requisition [facility] Care DermPath Lab [address] [facility], [place] [address] Kristine Nava DO [address] [facility] 3 [place] [address] Social History Tobacco Use Types Packs/Day Years Used Date Smoking Tobacco: Never Assessed Sex and Gender Information Value Date Recorded Sex Assigned at Not on file Legal 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 Male 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 Gender Identity Not on file Sexual Orientation Not on file documented as of this encounter Plan of Treatment Not on file documented as of this encounter Procedures Procedure Name Priority Date/Time Associated Diagnosis Comments DERMATOPATHOLOGY Routine 05/01/2018 12:0 0 AM CDT documented in this encounter Results * DERMATOPATHOLOGY (05/01/2018 12:00 AM CDT) Case Report Dermatopathology Report Case: [id number] Authorizing Provider: Kristine Nava DO Collected: 05/01/2018 12:00 AM Pathologist: Madison Sharma MD Received: 05/02/2018 07:51 AM Specimen: Skin, left buddhism 9 12:20 PM CDT DERMATOPATHOLOGY LABORATORY Final Diagnosis Specimen A. SKIN, left buddhism: VERRUCA VULGARIS (B07.8) 9 12:20 PM CDT DERMATOPATHOLOGY LABORATORY at 1220 CDT Clinical History SK vs atypia. Growing. 12:20 PM CDT DERMATOPATHOLOGY LABORATORY Gross Description Specimen A: Received is one formalin filled container labeled with the patient's name and designated left buddhism. The specimen consists of a shave measuring [id number]. Jar 0. 12:20 PM CDT DERMATOPATHOLOGY LABORATORY Microscopic Description Specimen A. SKIN, left buddhism: There is digitated epidermal hyperplasia, hypergranulosis, vacuolated [...] characteristic determined by the Dermatopathology Laboratory at [facility], directed by Dr. Kaylen Cavanaugh. These tests need not be, and therefore are not, approved by the [place] Food and Drug Administration. The tests are used for clinical purposes. Billing Codes Specimen Charges Stain Charges 32329 1 12:20 PM CDT DERMATOPATHOLOGY LABORATORY Embedded Images 12:20 PM CDT DERMATOPATHOLOGY LABORATORY Pathology/Cytolog y TISSUE SPECIMEN FROM SKIN / Unknown 05/01/2018 05/02/2018 7:51 AM CDT us Kristine Nava DO LAB - PATHOLOGY/CYTOLOGY ORDERABLES Final Result DERMATOPATHOLOGY LABORATORY [facility] - Department of Dermatology [address] [place] [address], 5th Floor Lab B [place], [place] [id number] [place] [address] documented in this encounter Visit Diagnoses Not on filedocumented in this encounter Care Teams Med Aide Relationship Specialty Start Date End Date Michael Gonzalez MD [address] [place] [address] PCP - General 05/13/08 documented as of this encounter
--- OUTSIDE RECORDS SUMMARY | 2024-08-28 06:35 | XMS_ITS | Clinical Summary ---
Author Organization [facility] Address [address] [facility] [place] [address] Care Team Providers Care Locomotive Repairer Diesel Name Role Phone Michael Gonzalez MD Primary Care Provider + Source Comments [facility],non-owned Affiliates and Associated Physician Practices is amultiple site organization consisting of ambulatory clinics and hospital sitesin [place], [place], [place] and [place]. This disclosure is being madepursuant to the Care Everywhere program and may not contain all information available regarding this patient. 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
--- OUTSIDE RECORDS SUMMARY | 2024-08-28 06:35 | XMS_ITS | Referral Summary ---
Author Organization [facility] Address [address] [place] [address] Care Team Providers Care Thread Grinder Name Role Phone Millie Abebe MD Unavailable [phone] Evangelina Alvarado MD Primary Care Provider + [...] on file Legal Sex Male 2:03 AM PRENATAL NURSE Gender Identity Not on file Sexual Orientation Not on file Last Filed Vital Signs Vital Sign Reading Time Taken Comments Blood Pressure 108/60 12/16/2018 3:22 PM PRENATAL NURSE Pulse 86 12/16/2018 3:22 PM PRENATAL NURSE Temperature - - Respiratory Rate - - Oxygen Saturation 94% 12/16/2018 3:22 PM PRENATAL NURSE Inhaled Oxygen Concentration - - Weight 112.5 kg (248 lb) 12/16/2018 3:22 PM PRENATAL NURSE Height 188 cm (6' 2) 09/03/2017 10:04 AM CDT Body Mass Index 31.84 09/03/2017 10:04 AM CDT Plan of Treatment Not on file Insurance [facility] CHOICE PLUS [facility] CORE HEALTH PLAN Care Teams Thread Grinder Relationship Specialty Start Date End Date Evangelina Alvarado MD [address] [place] [address] PCP - General 02/10/19 Millie Abebe MD [address] [facility] [facility] [place] [address] Mason Liner Cardiovascular Disease 12/13/18
--- OUTSIDE RECORDS SUMMARY | 2024-08-28 06:35 | XMS_ITS | Clinical Summary ---
Author Organization [facility] Address [address] [place] [address] Care Team Providers Care Labor Economics Teacher Name Role Phone Millie Abebe MD Unavailable [phone] Evangelina Alvarado MD Primary Care Provider + [...] on file Legal Sex Male 2:03 AM PRODUCTION INSPECTOR Gender Identity Not on file Sexual Orientation Not on file Obstetrics History Last Filed Vital Signs Vital Sign Reading Time Taken Comments Blood Pressure 108/60 12/16/2018 3:22 PM PRODUCTION INSPECTOR Pulse 86 12/16/2018 3:22 PM PRODUCTION INSPECTOR Temperature - - Respiratory Rate - - Oxygen Saturation 94% 12/16/2018 3:22 PM PRODUCTION INSPECTOR Inhaled Oxygen Concentration - - Weight 112.5 kg (248 lb) 12/16/2018 3:22 PM PRODUCTION INSPECTOR Height 188 cm (6' 2) 09/03/2017 10:04 AM CDT Body Mass Index 31.84 09/03/2017 10:04 AM CDT Plan of Treatment Not on file Insurance [facility] CHOICE PLUS [facility] HMO/PPO Address: [facility] [address] [place] [address] [facility] CORE HEALTH PLAN [facility] HMO/PPO Address: [facility] [address] [place] [address] Care Teams Labor Economics Teacher Relationship Specialty [place] [address] [place] [address] PCP - General 02/10/19 Millie Abebe MD [address] [facility] [place] [address] Bottom Man Cardiovascular Disease 12/13/18
--- OUTSIDE RECORDS SUMMARY | 2024-08-28 06:36 | XMS_ITS | Encounter Summary ---
Author Organization [facility] Address [facility] [place] [address] Care Team Providers Care Speech And Hearing Director Name Role Phone Aristeo Flood DO Primary Care Provider [phone] Brando Ortega MD Primary Care Provider [phone] Encounter Details Date Type Department Care Team (Late st Contact Info) Description 11/08/2019 Prep for Procedure [facility] Pre-Admission Testing [place], [place] [phone] Evangelina Alvarado MD [address] [place] [address] Social History Tobacco Use Types Packs/Day Years Used Date Smoking Tobacco: Never Smokeless Tobacco: Never Alcohol Use Standard Drinks/Week Comments Not Currently 0 (1 standard drink = 0.6 oz pur e alcohol) occasionally Sex and Gender Information Value Date Recorded Sex Assigned at Male 03/17/2024 8:48 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 Legal Sex Male 4:21 PM CDT Gender [...] st Contact Info) Description 12/22/2024 10:20 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 Telemedicine [facility] Multispecialty Care - [facility] [address] [facility] [address] [place] [address] Osman Doherty MD [address] [place] [address] [place] [address] documented as of this encounter Results * PRE-SURGICAL/PRE-PROCEDURE CORONAVIRUS (COVID 19) (11/08/2019 11:50 AM CDT) CORONAVIRUS SARS COV 2 PCR (RESP) NOT DETECTED NOT DETECTED 11/09/2019 1:25 PM CDT [facility] Comment: A Not Detected (negative) test result [...] providers and patients using the following websites: https://www.Datezr.com/home/Covid-19/HCP/NAAT/fact-sheet2 https://www.Datezr.Owlr/home/Covid-19/Patients/NAAT/ fact-sheet2 This test has been authorized by the FDA under an Emergency Use Authorization (EUA) for use by authorized laboratories. Due to the current public health emergency, [facility] is receiving a high volume of samples [...] about COVID-19 can be found at the [facility] website: www.[facility].com/Covid19. Test performed at [facility] [place] [address] [address] Director: AGUEDA BRISCOE DO,MPH FIRST TEST YES 11/08/2019 2:08 PM CDT [facility] EMPLOYED IN HEALTHCARE NO 11/08/2019 2:08 PM CDT [facility] SYMPTOMATIC DEFINED BY CDC NO 11/08/2019 2:08 PM CDT [facility] DATE OF SYMPTOM ONSET NO 11/08/2019 5:26 PM CDT [facility] HOSPITALIZATION STATUS NO 11/08/2019 2:08 PM CDT [facility] PATIENT IN ICU NO 11/08/2019 2:08 PM CDT [facility] RESIDENT OF [facility] NO 11/08/2019 2:08 PM CDT [facility] NOT 11/08/2019 5:26 PM CDT [facility] PATIENT'S RACE WHITE OR 11/08/2019 2:08 PM CDT [facility] ETHNICITY NONHISPANIC 11/08/2019 2:08 PM CDT [facility] SOURCE (QST) NASOPHARYNGEAL SWAB 11/08/2019 2:08 PM CDT [facility] NASOPHARYNGEAL SWAB / Unknown 11/08/2019 11:50 AM CDT us Evangelina Alvarado MD MICROBIOLOGY - GENERAL YAMILET LORENZO Final Result [facility] [address] [place] [address], [place] [phone] [place] [address] [place] [address], documented in this encounter Visit Diagnoses Diagnosis Preoperative testing- Primary Preoperative examination, unspecified documented in this encounter Additional Health Concerns Infection Onset Date Last Indicated Resolved Time COVID-19 Rule Out 11/08/2019 11/08/2019 11/09/2019 1:25 PM CDT documented as of this encounter Care Teams Speech And Hearing Director Relationship Specialty Start Date End Date Aristeo Flood DO [address] [address] PCP - General INTERNAL MEDICINE 11/03/19 02/13/23 Brando Ortega MD [address] [place] [address] PCP - General FAMILY PRACTICE 02/14/23 documented as of this encounter
[2024-08-28 06:50] VITALS: BP 148/97; PULSE 73; RESP 16; TEMP 36.4; O2SAT 97
--- NOTE | 2024-08-28 06:57 | P.PNAN_ITS ---
Anes - Initial Pre Proc Eval Procedure: Operation Date: 08/28/24 08:00 Proposed Procedures p Left Endoscopic Carpal Tunnel Release, Possible Open Carpal Tunnel Release - Beth Lee MD s Left Cubital Tunnel Release - Beth Lee MD Date/Time: 08/28/24 06:57 Surgeon: Beth Lee MD Pre Op Diagnosis: Left Carpal and Cubital Tunnel Syndrome Patient Data Age: 54 Gender: M Height: 1.88 m Weight: 103.95 kg Last Vital Signs Temp 97.5 F L 08/28/24 06:50 Pulse 73 08/28/24 06:50 Resp 16 08/28/24 06:50 BP 148/97 H 08/28/24 06:50 Pulse Ox 97 08/28/24 06:50 O2 Del Method Room Air 08/28/24 06:50 Allergies Allergy/AdvReac Type Severity Reaction Status Date / Time No Known Allergies Allergy Verified 08/28/24 06:48 Home Medications ?Medication ?Instructions ?Recorded ?Confirmed ?Type melatonin 5 mg chewable tablet 5 mg PO HS 11/03/21 08/28/24 History albuterol sulfate 90 mcg/actuation 2 inh inhalation Q4-6H PRN 12/30/23 08/28/24 Rx aerosol inhaler shortness of breath or wheezing #8.5 grams metformin 500 mg tablet 500 mg PO DAILY #90 tabs 01/29/24 08/28/24 Rx atorvastatin 20 mg tablet See Rx Instructions .Route 07/02/24 08/28/24 Rx .COMPLEX #90 tabs citalopram 40 mg tablet See Rx Instructions .Route 07/17/24 08/28/24 Rx .COMPLEX #90 tabs diclofenac sodium 75 mg See Rx Instructions .Route 07/17/24 08/28/24 Rx tablet,delayed release .COMPLEX #180 tabs lorazepam 0.5 mg tablet 0.5 mg PO BID PRN anxiety #60 tabs 07/23/24 08/28/24 Rx hydrochlorothiazide 25 mg tablet 25 mg PO DAILY #90 tabs 08/04/24 08/28/24 Rx metoprolol tartrate 100 mg tablet See Rx Instructions .Route 08/20/24 08/28/24 Rx .COMPLEX #180 tabs lansoprazole 30 mg capsule,delayed 30 mg PO DAILY #90 caps 08/26/24 08/28/24 Rx release Patient hx anesthesia problems: other (hypoxia with colonoscopy) Family hx anesthesia problems: none Results Review: All pre-operative results and documents have been reviewed as part of the pre- operative evaluation. [facility] Past Medical History Medical History COVID-19 OLI (obstructive sleep apnea) History of kidney stones Prediabetes History of COVID-19 Acute anxiety Screening for colon cancer Primary hyperparathyroidism Essential (primary) hypertension Mixed hyperlipidemia Depression Surgical History Surgical History History of Tejal fundoplication Hx of hemorrhoidectomy REUA, excision of Anal Skin tag on 11/14/21 Status post laser lithotripsy of ureteral calculus History of neck surgery H/O hemorrhoidectomy Status post parathyroidectomy Family History Family History Father , age 59 Esophageal cancer Mother Heart disease Diabetes mellitus Hypertension CKD (chronic kidney disease) Skin cancer Sibling Hypertension Social History Social History (Updated 08/26/24 @ 15:56 by Edwige Aaron) Social History: Caffeine-soda Smoking status: Never smoker Second hand tobacco smoke exposure: No Alcohol intake: former Substance use: never Substance use type: does not use Lack of Transportation: No Lack of Food: Never True Current Housing: I Have Housing Concerned About Future Housing: No Difficulty Paying Gas/Electric Bills: No Difficulty Paying for Meds: No Currently Unemployed: No Living arrangements: with family Occupation/Education: occupation 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 Informed Consent: The patient's anesthetic plan and its attendant risks and benefits were di scussed with the patient/family/POA. Questions were solicited and answers provided to the satisfaction of the patient/family/POA.
--- NOTE | 2024-08-28 07:01 | WPDHPUPDATE1 ---
History and Physical Update Update Date/Time: 08/28/24 07:01 Patient seen and examined in pre-operative holding area. No interval change in medical history or symptoms. Patient recalls previous discussion of benefits and alternatives to procedure. Continues to desire to proceed with left endoscopic possible open carpal tunnel release and left cubital tunnel release. Reviewed procedure, post-op expectations and risks including but not limited to bleeding, infection, injury to tendon/nerve/vessel, decreased hand function, stiffness, RSD, no change or worsening of symptoms. I discussed the possible use of assistants and their participation in the case. Patient stated understanding and signed the consent form wishing to proceed.
--- NOTE | 2024-08-28 07:02 | P.OP_ITS ---
Procedure Note - Detailed Date of Procedure 08/28/24 Pre-op Diagnosis Left Carpal and Cubital Tunnel Syndrome Post-op Diagnosis Same Procedure Performed left ectr and CuTR Surgeon Bteh Lee MD [employer] Teacher Parag Sue PA-C Anesthesia MAC Description of Procedure INFORMED CONSENT: The patient was seen and examined and marked in the pre-op area.? The patient signed the consent form. PROCEDURE IN DETAIL:The patient taken back to OR on the stretcher in supine position. Time out performed with anesthesia, surgeon and staff agreeing on patient's name site and surgery to be performed SCDs were placed on the lower extremities and inflated. A tourniquet was placed on {left} upper extremity and antibiotics given IV After anesthesia administered sedation I injected {10}cc 1%lido with epi and 0.5% marcaine plain at the operative sites The?{left upper extremity}?was prepped and draped in sterile fashion the??{left upper extremity} was? exsanguinated with Esmarch bandage and tourniquet inflated to 250mmHg I made a transverse incision in the {left} volar distal wrist crease through skin and dermis with 15 blade scalpel.? Littler scissors spread down to antebrachial fascia. A small incision was made in antebrachial fascia allowing access to Carpal tunnel. I proceeded with sequential dilation staying in line with the ring finger and hugging the hook of the hamate.? I then used the synovial elevator to free any adhesions from the underside of the transverse carpal ligament. Next I was able to insert the Microaire endoscopic carpal tunnel device with direct visualization of the transverse fibers on the monitor and proceeded with complete segmental retrograde release of the ligament in its entirety.? I irrigated with normal saline and closed with 4-0 monocryl for dermis and subcuticular closure. I next proceeded with making a longitudinal incision between two heads for flexor carpi ulnaris at end of {left} cubital tunnel with 15 blade scalpel.? Littler scissors were used to spread down to FCU fascia.? An incision was made in FCU fascia and ulnar nerve identified exiting cubital tunnel.? I proceeded with complete retrograde release of the cubital tunnel including 7cm proximal for the intermuscular septum.? The nerve appeared somewhat sclerotic and white in appearance even after epineurolysis.? There was no subluxation on full elbow range of motion. ? I irrigated with normal saline and closure with 4-0 monocryl for dermis and subcuticular. The incisions were covered with Dermabond then 4x4s, ethan, and a posterior elbow and volar wrist splint for patient safety, security and comfort and secured with rehan bandages after the tourniquet was let down noting the hand was warm and well perfused.? Patient awaken from anesthesia and transferred to recovery in stable condition Complications - none EBL- 1cc Disposition - home in stable condition parag Sue PA-C was essential for positioning, retraction, closure and dressing placement [facility] Billing Surgery - Charge Forward: Surgery Billing ([id number] same for parag vogel )
[2024-08-28] MEDS: LACTATED RINGERS 1,000 ML 30 ML IV CONT (07:07)
[2024-08-28] MEDS: ACETAMINOPHEN 500 MG TABLET 1000 MG PO (07:07)
[2024-08-28] MEDS: ceFAZolin SODIUM 2 GM/20 ML SW SYRINGE IV PUSH (08:04)
[2024-08-28] MEDS: BUPivacaine HCL 0.5% 10 ML AMP INFILTRATE (08:18)
[2024-08-28] MEDS: LIDO 1%/EPINEPHRINE 1:100,000 20 ML VIAL 5 ML INFILTRATE (08:19)
--- NOTE | 2024-08-28 08:30 | WPDANESPN ---
Anes - Prog Note Post-Op Date/Time: 08/28/24 08:30 Vital Signs: Last Vital Signs Temp 97.5 F L 08/28/24 06:50 Pulse 73 08/28/24 06:50 Resp 16 08/28/24 06:50 BP 148/97 H 08/28/24 06:50 Pulse Ox 97 08/28/24 06:50 O2 Del Method Room Air 08/28/24 06:50 Pain Score (VAS): no 08/28/24 07:00 POC Capillary Glucose 107 H Patient Feedback: Patient satisfied with anesthetic care.
[2024-08-28 08:45] VITALS: BP 116/83; PULSE 75; RESP 16; O2SAT 95
[2024-08-28 09:00] VITALS: BP 128/85; PULSE 71; RESP 16; O2SAT 95
[2024-08-28 09:20] VITALS: BP 125/84; PULSE 66; RESP 16; O2SAT 97
== END 2024-08-28 09:47 | disposition home or self-care (01) ==
PROVIDERS: PCP Family Medicine; Visit Provider Plastic Surgery
PROC: 01N54ZZ Release Median Nerve, Percutaneous Endoscopic Approach (ICD-10-PCS; CPT 29848; principal; 2024-08-28 08:00)
PROC: (CPT 64718; 2024-08-28 08:00)
DX: G56.02 Carpal tunnel syndrome, left upper limb (principal); G56.22 Lesion of ulnar nerve, left upper limb
CPT/HCPCS: 29848; 64718